=== PATIENT | female | born 1940 | race Caucasian/White ===

== ENCOUNTER 2017-03-11 04:17 | Inpatient (IN) ==
[2017-03-11] MEDS ORDERED: ONDANSETRON 4 MG/2 ML VIAL IV STA (04:39)
[2017-03-11] MEDS ORDERED: MORPHINE 2 MG/1 ML SYRINGE IV STA (04:39)
[2017-03-11] MEDS ORDERED: ASPIRIN 325 MG TABLET PO STA (04:39)
[2017-03-11] MEDS ORDERED: ALUM/MAG/SIMETH/LIDO VISC 1:1 30 ML BOTTLE PO STA (04:39)
[2017-03-11] MEDS ORDERED: NITROGLYCERIN 2% OINT 1 INCH/GM PACK TOP STA (04:43)
[2017-03-11] MEDS ORDERED: ENOXAPARIN 60 MG/0.6 ML SYRINGE SUBCUT STA (04:44)
--- NOTE | 2017-03-11 04:45 | Emergency Department Note ---
Ashia Roy Rolonda, am scribing for, and in the presence of, Wilson Long MD 04:44. Ethan Roy Charles R, MD, personally performed the services described in this documentation, ascribed by Jihan Ang in my presence, and it is both accurate and complete 445 . Arrival - Arrival Chief Complaint: Chest Pain ED Nursing Triage Note: Patient complaints of midsternal chest pain and shortness of breath that began about four and half hours prior to triage. Patient states that she thought pain would go away. Patient has a history of HTN. Denies respiratory medical history Mode of Arrival: Ambulatory Limitations: No Limitations Source: Patient, Old Records Reviewed, RN Notes Reviewed Time Seen by Provider: 03/11/17 04:27 - History of Present Illness HPI Narrative: Pt is a 76 y/o female who arrived to the ED via EMS with c/o tight/heavy chest pain with an onset of x4 hours ago. Pt has a PMHx of HTN. 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 She states that she laid down to go to bed and noticed that she was having a hard time catching her breath. Pt confirms that the chest pain radiated to her neck but denies diaphoresis and vertigo. She also stated that it feels as if something is sitting on her shoulders. Pt had no pain upon exam. She is f/u by Dr. Jerome. No other complaint/pain in ED Onset (ago): hour(s) Consistency: constant Severity: mild Severity scale (1-10): 3 Quality: other (heaviness/tightness) Date of Last Menstrual Period: menopause Allergies/Adverse Reactions: Allergies Allergy/AdvReac Type Severity Reaction Status Date / Time No Known Allergies Allergy Unverified 03/11/17 04:34 Home Medications: Home Medications Medication Instructions Recorded Confirmed Type Meloxicam 7.5 mg PO DAILY 03/11/17 03/11/17 History PARoxetine [Paxil] 40 mg PO DAILY 03/11/17 03/11/17 History risperiDONE [Risperidone] 0.5 mg PO BEDTIME 03/11/17 03/11/17 History Review of System - Review of System 12 point system: reviewed and no additional remarkable complaints except as stated - Review of System Constitutional: Absent: chills, diaphoresis, fever Eyes: Absent: discharge, redness Head/Ears/Nose/Throat: Absent: earache, epistaxis Respiratory: Present: respiratory distress (SOB). Absent: cough Cardiovascular: Present: chest pain. Absent: palpitations, dyspnea on exertion Gastrointestinal: Absent: abdominal pain Genitourinary female: Absent: dysuria Musculoskeletal: Present: neck pain. Absent: arm pain, back pain, leg pain Skin: Absent: rash Neurological: Absent: headache Psychiatric: Absent: anxiety Endocrine: Absent: cold intolerance Hematological/Lymphatic: Absent: easy bleeding Allergic/Immunologic: Absent: facial swelling Medical,Surgical,& Family Hx - Medical History Cardio: History of: Hypertension - Social History Smoking Status: Never smoker Frequency of Alcohol Use: None Type of Drug Use: None Exam Vital Signs: Vital Signs Temperature 98.9 F 03/11/17 04:17 Pulse Rate 83 03/11/17 04:40 Respiratory Rate 18 03/11/17 04:40 Blood Pressure 102/94 03/11/17 04:17 O2 Sat by Pulse Oximetry 98 03/11/17 04:17 - General General appearance: alert, in no apparent distress - Head Head exam: Present: atraumatic, normocephalic - Eye Eye exam: Present: PERRL, EOMI - ENT ENT exam: Present: mucous membranes moist. Absent: mucous membranes dry - Neck Neck exam: Present: full ROM. Absent: tenderness - Chest Chest inspection: Present: symmetric chest wall rise. Absent: tenderness - Respiratory Respiratory exam: Present: normal lung sounds bilaterally. Absent: wheezes - Cardiovascular Cardiovascular exam: Present: regular rate, normal rhythm, normal heart sounds. Absent: bradycardia - Abdominal Exam Abdominal exam: Present: soft, normal bowel sounds. Absent: tenderness - Extremities Exam Extremities exam: Present: full ROM, pedal edema (+1). Absent: tenderness - Back Exam Back exam: Present: full ROM. Absent: tenderness - Neurological Exam Neurological exam: Present: alert, oriented X3, CN II-XII intact - Psychiatric Psychiatric exam: Present: normal affect, normal mood - Skin Skin exam: Present: warm, dry, intact, normal color. Absent: rash Course - Consultations Consultation #1: Spoke to Dr. Contreras furniture maker on-call she looked the EKG we talked about reviewed it she does not think this is a STEMI no need to go to the Product Director right now this may be acute coronary syndrome she advise admit to the CCU give Lovenox aspirin nitro till blood pressure and call her if troponins are positive for any acute changes Time: 04:40 Results - Labs CBC & BMP: 03/11/17 04:38 03/11/17 04:38 Critical Care Time Critical Care Time: Yes Total Critical Care Time: 60 Disposition Clinical Impression: Chest pain, Acute coronary syndrome, History of hypertension, History of OCD ( obsessive compulsive disorder), Elevated troponin, Unstable angina pectoris Case discussed with: patient, patient's family Disposition: Still a Patient Condition: Guarded Time of Disposition: 05:53
[2017-03-11] MEDS ORDERED: ASPIRIN 325 MG TABLET ONE (05:01)
[2017-03-11] MEDS ORDERED: NITROGLYCERIN 2% OINT 1 INCH/GM PACK TOP ONE (05:01)
[2017-03-11] MEDS ORDERED: ONDANSETRON 4 MG/2 ML VIAL ONE (05:01)
[2017-03-11] MEDS ORDERED: MORPHINE 2 MG/1 ML SYRINGE ONE (05:01)
[2017-03-11] MEDS ORDERED: ENOXAPARIN 80 MG/0.8 ML SYRINGE SUBCUT ONE (05:01)
[2017-03-11] MEDS ORDERED: ALUM/MAG/SIMETH/LIDO VISC 1:1 30 ML BOTTLE PO ONE (05:02)
[2017-03-11 05:03] LABS: Basophils % 0.3 % (0.0-0.8); Eosinophils # 0.4 10*3/uL (0.0-0.87); Eosinophils % 3.2 % (0.00-10.9); Hematocrit 41.9 VOL% (35.7-47.0); Immature Granulocytes % 0.4 %; Immature Granulocytes Absolute 0.05 #; Lymphocytes # 2.1 10*3/uL (1.4-4.0); Lymphocytes % 17.5 % (21.3-54.2); Mean Corpuscular Hemoglobin 29 PG (27-34); Mean Corpuscular Volume 92.3 FL (87-102); Mean Platelet Volume 11.2 FL (9.6-12.0); Monocytes # 0.6 10*3/uL (0.11-0.8); Monocytes % 5.2 % (1.7-12.7); Neutrophils # 8.7 10*3/uL (1.4-7.4); Neutrophils % 73.4 % (38.7-73.9); Platelet Count 312 T/CUMM (130-400); Red Blood Count 4.54 MC/CUMM (3.8-5.5); Red Cell Distribution Width 14.7 % (9.3-17.3); White Blood Count 11.8 T/CUMM (4-12)
[2017-03-11 05:40] LABS: Magnesium 2.2 MG/DL (1.8-2.4)
[2017-03-11 05:46] LABS: Albumin 2.9 G/DL (3.4-5.0); Bilirubin,Total 1.2 MG/DL (0.2-1.0); Calcium 9.4 MG/DL (8.5-10.1); Osmolality,Calculated 283.3 MOS/KG (273-304); Potassium 4.2 MMOL/L (3.5-5.1); Total Protein 7.1 G/DL (6.4-8.3)
--- NOTE | 2017-03-11 06:21 | Cardiology History & Physical ---
Assessment and Plan (1) Acute coronary syndrome Status: Acute Current Visit: Yes (2) History of hypertension Status: Chronic Current Visit: Yes (3) History of OCD (obsessive compulsive disorder) Status: Chronic Current Visit: Yes History of Present Illness Chief complaint: Chest pain History of present illness: Dog Warden: None Ms. Shelton is a 76 year old female without a prior cardiac history, with risk factors significant for hypertension. She presents with chest discomfort. In general she is a very simple historian and does not provide many details even when prompted. From what I can ascertain she developed symptoms at approximately 9:00 yesterday evening. There was some chest discomfort involved , but her predominant symptom was "making a funny noise when she breathes". This was upsetting her "dog babies". It seems that she had some chest discomfort which included a pain and a pressure. This was nonradiating without clear triggers or alleviators. There was associated shortness of breath. Her symptoms wax and wane throughout the evening, and finally at approximately 4 AM she decided to come to the emergency room for further evaluation and treatment because she was more short of breath when she was recumbent. Upon arrival she was administered nitroglycerin and aspirin which dramatically improved her symptoms. At the time of my interview she is pain-free. She has no prior cardiac history. She denies experiencing the symptoms Prior to the evening. There has been no change in her exercise tolerance, she denies any dyspnea on exertion, orthopnea, lower extremity edema. She has no history of GI bleeding. She has no contraindication to dual antiplatelet therapy. She has no other acute complaints. Impression and plan: 1. Acute coronary syndrome-presents with chest discomfort alleviated with nitroglycerin, abnormal ECG and mildly elevated cardiac biomarkers. She is currently pain-free, although she does have a high risk ECG. She is already been administered Lovenox and aspirin. We will check a fasting lipid profile, administer statins and beta blockers as tolerated. I have discussed the role, risks and benefits of cardiac catheterization with the patient and she is agreeable to proceeding. Home Medications Medication Instructions Recorded Confirmed Type Meloxicam 7.5 mg PO DAILY 03/11/17 03/11/17 History PARoxetine [Paxil] 40 mg PO DAILY 03/11/17 03/11/17 History risperiDONE [Risperidone] 0.5 mg PO BEDTIME 03/11/17 03/11/17 History Allergies Allergy/AdvReac Type Severity Reaction Status Date / Time No Known Allergies Allergy Unverified 03/11/17 04:34 12 point system: reviewed and no additional remarkable complaints except as stated Medical,Surgical,& Family Hx - Medical History Cardio: History of: Hypertension Psychological: History of: Psychiatric Problems (OCD) - Social History Smoking Status: Never smoker Frequency of Alcohol Use: None Type of Drug Use: None Lives With:: Alone Functional capacity: independent ambulation Cardiology Physical Exam - Constitutional Vitals: Vital Signs Temp Pulse Resp BP Pulse Ox 98.9 F 83 18 102/94 98 03/11/17 04:17 03/11/17 04:40 03/11/17 04:40 03/11/17 04:17 03/11/17 04:17 Intake and Output 03/10/17 03/10/17 03/11/17 15:59 23:59 07:59 Other: Weight 65.771 kg Patient Weight 03/11/17 23:59 Weight 65.771 kg Exam: General appearance: normal weight, no acute distress - Head Head exam: Present: normal inspection, normocephalic, atraumatic. Absent: hematoma, laceration - Eye Eye exam: Present: EOMI. Absent: conjunctival injection, nystagmus, periorbital swelling, scleral icterus, laceration to eyelids Pupils: Present: PERRL. Absent: constricted, dilated, fixed, irregular, unequal - ENT ENT exam: Present: normal exam, normal external ear exam - Neck Neck exam: Present: normal inspection. Absent: lymphadenopathy, meningismus, tenderness, thyromegaly - Respiratory Respiratory exam: Present: clear to auscultation bilaterally. Absent: accessory muscle use, chest wall tenderness - Cardiovascular Cardiovascular exam: Present: regular rate and rhythm. Absent: carotid bruit, gallop, JVD, rubs - GI/Abdominal GI/Abdominal exam: Present: normal bowel sounds, soft. Absent: distended, firm , guarding, hernia, mass, tenderness, rebound. - Extremities Exam Extremities exam: Present: normal inspection, normal capillary refill. Absent: calf tenderness, edema - Back Exam Back exam: Present: normal inspection. Absent: muscle spasm, vertebral tenderness - Neurological Exam Neurological exam: Present: alert, oriented X3, grossly intact without resting or intention tremor - Psychiatric Psychiatric exam: Present: normal affect, normal mood - Skin Skin exam: Present: normal color, warm, dry, intact. Absent: cyanosis, diaphoretic, rash, urticaria Result/EKG - Labs CBC & BMP: 03/11/17 04:38 03/11/17 04:38 Lab Results: I have reviewed the past 24 hour labs Labs: Laboratory Results - last 24 hr 03/11/17 03/11/17 03/11/17 04:38 04:38 04:38 WBC RBC Hgb Hct MCV MCH MCHC RDW Plt Count MPV Neut % (Auto) Lymph % (Auto) [place] % (Auto) Eos % (Auto) Baso % (Auto) Neut # (Auto) Lymph # (Auto) [place] # (Auto) Eos # (Auto) Baso # (Auto) Immature Gran % Nucleated RBC % Immature Gran # Nucleated RBCs # Immature Plt Fraction INR PT Patient/Control Mix D-Dimer, Quantitative 1.1 Sodium 141 Potassium 4.2 Chloride 107 Carbon Dioxide 28 Anion Gap 10.2 BUN 20 H Creatinine 1.40 H GFR Calculation 37 BUN/Creatinine Ratio 14.00 Glucose 107 H Calculated Osmolality 283.3 Calcium 9.4 Magnesium Total Bilirubin 1.20 H AST 14 ALT 14 Alkaline Phosphatase 115 Troponin I B-Natriuretic Peptide 675 H Total Protein 7.1 Albumin 2.9 L Globulin 4.2 H Albumin/Globulin Ratio 0.6 L Lipase 03/11/17 03/11/17 03/11/17 04:38 04:38 04:38 WBC 11.8 RBC 4.54 Hgb 13.0 Hct 41.9 MCV 92.3 MCH 29 MCHC 31.0 L RDW 14.7 Plt Count 312 MPV 11.2 Neut % (Auto) 73.4 Lymph % (Auto) 17.5 L [place] % (Auto) 5.2 Eos % (Auto) 3.2 Baso % (Auto) 0.3 Neut # (Auto) 8.7 H Lymph # (Auto) 2.1 [place] # (Auto) 0.6 Eos # (Auto) 0.4 Baso # (Auto) 0.0 Immature Gran % 0.4 Nucleated RBC % 0.0 Immature Gran # 0.05 Nucleated RBCs # 0.00 Immature Plt Fraction 0.0 INR 1.0 PT Patient/Control Mix 10.0 D-Dimer, Quantitative Sodium Potassium Chloride Carbon Dioxide Anion Gap BUN Creatinine GFR Calculation BUN/Creatinine Ratio Glucose Calculated Osmolality Calcium Magnesium Total Bilirubin AST ALT Alkaline Phosphatase Troponin I 0.157 H B-Natriuretic Peptide Total Protein Albumin Globulin Albumin/Globulin Ratio Lipase 03/11/17 04:38 WBC RBC Hgb Hct MCV MCH MCHC RDW Plt Count MPV Neut % (Auto) Lymph % (Auto) [place] % (Auto) Eos % (Auto) Baso % (Auto) Neut # (Auto) Lymph # (Auto) [place] # (Auto) Eos # (Auto) Baso # (Auto) Immature Gran % Nucleated RBC % Immature Gran # Nucleated RBCs # Immature Plt Fraction INR PT Patient/Control Mix D-Dimer, Quantitative Sodium Potassium Chloride Carbon Dioxide Anion Gap BUN Creatinine GFR Calculation BUN/Creatinine Ratio Glucose Calculated Osmolality Calcium Magnesium 2.2 Total Bilirubin AST ALT Alkaline Phosphatase Troponin I B-Natriuretic Peptide Total Protein Albumin Globulin Albumin/Globulin Ratio Lipase 202.0 - EKG EKG results: interpreted by me, sinus rhythm (There is poor R-wave progression or Q waves in the anterior leads with less than [address] elevation and biphasic T waves)
--- NOTE | 2017-03-11 07:44 | XRay Report ---
XR chest 1V portable Indication: Chest pain Comparison: Chest x-ray dated May 04, 2012 Technique: Single frontal view of the chest. Findings: Mild cardiomegaly. There is a nonspecific reticular pattern throughout the bilateral lungs suspicious for interstitial pulmonary edema, interstitial pneumonia, or other interstitial lung disease. Interstitial pulmonary edema/CHF favored. Visualized osseous and surrounding soft tissue structures appear grossly unchanged. Diffuse osteopenia. IMPRESSION: As above. PROCEDURE INTERPRETED AT [facility] DEPARTMENT OF RADIOLOGY Final Report Signed by: Dr Jeremy Carvalho
[2017-03-11] MEDS ORDERED: ONDANSETRON 4 MG/2 ML VIAL IV PRN (07:55)
[2017-03-11] MEDS ORDERED: POTASSIUM CHLORIDE RIDER 10 MEQ in PREMIX 1 EACH IV PRN (07:55)
[2017-03-11] MEDS ORDERED: SODIUM CHLORIDE 0.9% 1,000 ML IV SCH (07:55)
[2017-03-11] MEDS ORDERED: MORPHINE 2 MG/1 ML SYRINGE IV PRN (07:55)
[2017-03-11] MEDS ORDERED: DIAZEPAM 5 MG TABLET PO ONE (07:55)
[2017-03-11] MEDS ORDERED: POTASSIUM CHLORIDE 20 MEQ TABLET PO PRN (07:55)
[2017-03-11] MEDS ORDERED: MAGNESIUM SULF RIDER 2 GM in PREMIX 1 EACH IV PRN ×2 (07:55)
[2017-03-11] MEDS ORDERED: diphenhydrAMINE CAP 25 MG CAPSULE PO ONE (07:55)
[2017-03-11] MEDS ORDERED: MAGNESIUM SULF RIDER 4 GM in PREMIX 1 EACH IV PRN (07:55)
[2017-03-11] MEDS ORDERED: MELOXICAM 7.5 MG TABLET PO SCH (09:00)
--- NOTE | 2017-03-11 09:42 | EKG Report ---
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
[2017-03-11] MEDS: PARoxetine 20 MG TABLET PO SCH (10:51)
[2017-03-11] MEDS: PANTOPRAZOLE 40 MG TABLET PO SCH (10:52)
[2017-03-11] MEDS ORDERED: NITROGLYCERIN 2% OINT 1 INCH/GM PACK TOP SCH (12:00)
[2017-03-11] MEDS ORDERED: HEPARIN/NACL 0.9% 2 UNITS/ML 1,000 ML IV ONE (12:47)
[2017-03-11] MEDS ORDERED: LIDOCAINE 1%/EPI INJ 20 ML VIAL ONE (12:47)
[2017-03-11] MEDS ORDERED: MIDAZOLAM 2 MG/2 ML VIAL ONE (12:59)
[2017-03-11] MEDS ORDERED: fentaNYL 100 MCG/2 ML VIAL ONE (12:59)
--- NOTE | 2017-03-11 13:29 | History and Physical Update ---
Sedation H&P Update - History and Physical H&P was reviewed, the patient examined and there: are no changes in the patients condition since last H&P was completed. - Sedation Plan for Sedation: moderate Patient Consent: Procedure disscussed with patient and patinet has consented., Risks and benefits were discussed with patient,including infection,, bleeding, injury to surrounding structures, seizure, temporary nerve, Patient understands and accepts potential risks/benefits and agrees to, proceed. ASA Class: III Airway Assessment: Class III: Soft palate, base of uvula visible
--- NOTE | 2017-03-11 13:32 | EKG Report ---
Stationary ECG Study [facility] Test Date: 03/11/2017 4:35:08 AM Pat Name: AC HAIEL Department: Room: 125 Gender: F Staffing Coordinator: : 1940 Requested by: Wilson Patel Order Number: [id number] Reading MD: STEVE PARRISH Intervals [place] Rate: 81 P: 51 DE: 168 QRS: -74 QRSD: 94 T: 100 QT: 388 QTc: 425 Interpretive Statements SINUS RHYTHM POSSIBLE LEFT ATRIAL ENLARGEMENT POSSIBLE LEFT VENTRICULAR HYPERTROPHY INFERIOR MYOCARDIAL INFARCTION, OF INDETERMINATE AGE ANTEROSEPTAL MYOCARDIAL INFARCTION, PROBABLY RECENT ACUTE [place] Electronically Signed On 03-12-17 05:26:38 CDT by STEVE PARRISH [email or web address]
[2017-03-11] MEDS ORDERED: ENOXAPARIN 60 MG/0.6 ML SYRINGE ONE (13:39)
--- NOTE | 2017-03-11 13:40 | EKG Report ---
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
[2017-03-11] MEDS ORDERED: EPTIFIBATIDE 75 MG/100 ML BOTTLE IV ONE (13:42)
[2017-03-11] MEDS ORDERED: EPTIFIBATIDE 20,000 MCG/10 ML VIAL ONE (13:42)
[2017-03-11] MEDS ORDERED: EPTIFIBATIDE 75 MG/100 ML BOTTLE IV SCH (13:50)
[2017-03-11] MEDS ORDERED: TICAGRELOR 90 MG TABLET ONE (14:17)
--- NOTE | 2017-03-11 14:59 | Cardiac Catheterization ---
Date of Procedure:: 03/11/17 Pre-op Diagnosis: Abnormal EKG atypical chest pain for evaluation Post-op diagnosis: same Procedure: Procedures performed: Left heart catheterization Coronary arteriography Percutaneous intervention to the proximal LAD with a 3.0 x 23 mm Zions drug- eluting stent with a good angiographic result Percutaneous intervention to the diagonal branch of the LAD with a 2.0 x 12 mm balloon with a good angiographic result [Right] femoral sheath angiography Mynx closure femoral arteriotomy site After obtaining informed consent the patient was brought to the catheterization lab where the [right] groin was prepped and draped in the usual sterile manner. After intravenous sedation and local anesthesia a needle stick was made to the right femoral artery and a [6 [place] sheath] was positioned without difficulty. A left heart catheterization was undertaken using first a José left diagnostic catheter. The catheter was advanced under fluoroscopy over a guidewire and positioned with its tip in the ostium of the left main coronary artery. Multiple angiograms were obtained of the left coronary artery in multiple views. After adequate angiogram to left coronary obtain this catheter was withdrawn and an AMR right coronary catheter was advanced over a guidewire under fluoroscopic control where angiography of the right coronary artery was undertaken in multiple views. After adequate angiograms of the right coronary artery were obtained this catheter was withdrawn. We elected at this point to proceed with percutaneous intervention of the LAD and the diagonal. 2 BMW 014 wires were advanced one across the LAD stenosis the other across the diagonal. A 2.0 x 20 mm apex balloon was advanced to the LAD and inflated to 12 amadou. At this point the diagonal closed. A 3.0 x 23 mm Zions Alpine stent was advanced across the LAD stenosis and deployed to a maximum 10 amadou. The diagonal wire was then pulled back and then redirected into the diagonal without difficulty. This was done after second inflation was undertaken to the LAD stent taken to 14 amadou for 20 seconds. At this point there was good apposition of the LAD stent to the vessel wall. A 2.0 x 15 mm Jersey balloon was advanced across the diagonal stenosis and inflated a single inflation to 10 amadou. There was good resolution of the stenosis with a roughly 40-50% residual stenosis. There was BENSON grade III flow down both branches and at this point we elected to stop the procedure. Both guidewires were pulled and repeat angiogram confirmed widely patent LAD stent with no residual stenosis of the diagonal of roughly 50%. The distal diagonal was very small and appeared to be occluded in its midportion. This appear to be an adequate angiographic result and at this point the balloons and wires were pulled from the guide. The guide was then removed from the sheath. A pigtail ventriculographic catheter was advanced over guidewire under fluoroscopic control deviation aorta where it was passed across the aortic valve and intraventricular hemodynamic some measured. Pullback was obtained from the ventricle to the aorta under hemodynamic monitoring and then removed. Patient underwent right femoral sheath angiography which demonstrated anatomy appropriate for Angio-Seal closure. This was accomplished without difficulty. Good hemostasis was obtained. Patient was transferred back to the CCU having suffered no significant immediate complications. Hemodynamics: Please see the accompanying data sheet Coronary arteriography: Left coronary artery: The left main coronary artery is well-developed and free of significant obstructing lesions. The circumflex coronary is a large codominant vessel that possesses no significant lesions through its course. The branches of the circumflex likewise are free of significant obstructing lesions. The left anterior descending coronary artery is a large vessel that extends around the apex of the ventricle. The LAD is subtotally occluded in its proximal portion at the takeoff of the large diagonal. This is 99% occluded. The diagonal is occluded in a similar manner with very sluggish flow down the diagonal branch. Right coronary artery: The right coronary artery is a large codominant vessel it possesses no significant lesions to his course. The branches of the right coronary likewise are free of significant obstructing lesions. Right femoral sheath angiography: After injection of contrast in the right femoral arterial sheath it is noted be of normal caliber and enters above the bifurcation. The distal iliac, common femoral and bifurcation appear to be free of significant obstructing lesions based on this limited angiographic study. There appears to be a linear dissection with out significant impediment to flow which we will observe at this point. Conclusions: 1: Successful PCI of the subtotal occluded LAD/diagonal with a widely patent LAD with BENSON grade III flow down the vessel and a residual 50% stenosis of the ostium of the diagonal which appears to be totally occluded in its midportion. 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 This will be for continued observation. Discussion and recommendations: Patient had an atypical presentation with minimally elevated troponins and abnormal EKG with very minimal symptoms that were consistent with ischemia. She was brought for catheterization found to have a subtotal LAD/diagonal which is been successfully opened and our plan will be to treat the patient aggressively with antithrombotic and antiplatelet agents and appropriate antianginal medications. We will evaluate her LV function with echocardiography as her renal function was not normal and a fair amount of contrast was given for this procedure. Our findings have been reviewed with the patient Surgeon / Physician: Solo Dorantes Estimated blood loss: minimal Specimens: none sent Condition: stable - Medications / Follow-up
--- NOTE | 2017-03-11 15:28 | EKG Report ---
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
[2017-03-11] MEDS: SODIUM CHLORIDE 0.45% 1,000 ML IV SCH (15:52)
[2017-03-11] MEDS ORDERED: ENOXAPARIN 80 MG/0.8 ML SYRINGE SUBCUT SCH (17:00)
--- NOTE | 2017-03-11 20:17 | ECHO Report ---
Sangita Shelton Exam Date: 03/11/2017 08:28 Referring Physician: Technologist: Tuyet Nunn Age: 76 Ht (in): 66 Wt (lb): 145 Gender: F Exam Location: [facility] Echo Indications: unstable angina pectoris, elevatted troponin, Hx. HTN, arrhythmia, chest pain, acute coronary syndrome BP: 112 / 30 HR: 67 Rhythm: Sinus Technical Quality: Fair IMPRESSIONS Moderately to severely reduced LV systolic function with regional wall motion as described below, ejection fraction 35%. Grade 1/4 diastolic dysfunction. Mild left atrial enlargement. Mild mitral, tricuspid regurgitation. Trace aortic and pulmonic regurgitation. Aortic sclerosis without stenosis. Trivial pericardial effusion. MEASUREMENTS (Male / Female) Normal Values 2D ECHO LV Diastolic Diameter PLAX 5.3 cm 4.2 - 5.9 / 3.9 - 5.3 cm LV Systolic Diameter PLAX 4.3 cm LV Fractional Shortening PLAX 19.3 % IVS Diastolic Thickness 1.1 cm 0.6 - 1.0 / 0.6 - 0.9 cm LVPW Diastolic Thickness 1.0 cm 0.6 - 1.0 / 0.6 - 0.9 cm Aortic Root Diameter 2.5 cm LA Systolic Diameter LX 4.7 cm 3.0 - 4.0 / 2.7 - 3.8 cm DOPPLER TR Peak Velocity 326.0 cm/s TR Peak Gradient 42.5 mmHg FINDINGS Left Ventricle Mildly increased left ventricular cavity size. Mild concentric left ventricular hypertrophy with moderate diastolic dysfunction. Left ventricular ejection fraction is estimated at 35%. The apex is severely hypokinetic if not akinetic. The anterior septum also appears severely hypokinetic if not akinetic. There is severe hypokinesis of the mid to distal inferior wall. The mid to distal anterior wall is moderately hypokinetic. Right Ventricle Normal right ventricular size. Right Atrium Normal right atrial size. Left Atrium The left atrium is mildly enlarged. Mitral Valve Mildly thickened mitral valve with mild mitral regurgitation. Aortic Valve Mild aortic valve sclerosis without stenosis. Trace aortic valve regurgitation. Tricuspid Valve Morphologically normal tricuspid valve. Trace - mild tricuspid valve regurgitation. Tricuspid regurgitation velocities suggest a PAP of 42.5 mmHg + RAP. Pulmonic Valve Morphologically normal pulmonic valve. Trace pulmonary valve regurgitation. Pericardium Trivial pericardial effusion. Aorta Normal size aortic root and proximal ascending aorta. Tiffany Contreras MD (Electronically Signed) Final Date: 11 March 2017 20:16
[2017-03-11] MEDS ORDERED: risperiDONE 0.5 MG TABLET PO SCH (21:00)
[2017-03-11] MEDS: ATORVASTATIN 80 MG TABLET PO SCH (21:59)
[2017-03-11] MEDS: CARVEDILOL 6.25 MG TABLET PO SCH (21:59)
[2017-03-12 02:09] LABS: Apearance,Urine CLEAR (Clear); Bilirubin,Urine Negative (Negative); Blood, Urine Negative (Negative); Glucose,Urine (UA) Negative (Negative); Ketones,Urine Negative (Negative); Nitrite,Urine Negative (Negative); Protein,Urine Negative; RBC,Urine <1 /HPF (0-4); Squamous Epithelial Cell,Urine Occasional /HPF (0-10); Urine Color Straw (Yellow); Urine Specific Gravity 1.039 (1.001-1.035); Urine Urobilinogen < 2.0 EU/DL (0.2-1.0); WBC,Urine 1 /HPF (0-6)
[2017-03-12 04:16] LABS: Basophils % 0.2 % (0.0-0.8); Eosinophils # 0.4 10*3/uL (0.0-0.87); Eosinophils % 4.3 % (0.00-10.9); Hematocrit 34.6 VOL% (35.7-47.0); Hemoglobin 10.9 GM/DL (12.0-16.0); Immature Granulocytes % 0.4 %; Immature Granulocytes Absolute 0.03 #; Lymphocytes # 1.8 10*3/uL (1.4-4.0); Lymphocytes % 22.1 % (21.3-54.2); Mean Corpuscular HGB Conc 31.5 GM/DL (32-36); Mean Corpuscular Hemoglobin 29 PG (27-34); Mean Corpuscular Volume 91.5 FL (87-102); Mean Platelet Volume 11.5 FL (9.6-12.0); Monocytes # 0.5 10*3/uL (0.11-0.8); Monocytes % 6.4 % (1.7-12.7); Neutrophils # 5.4 10*3/uL (1.4-7.4); Neutrophils % 66.6 % (38.7-73.9); Platelet Count 263 T/CUMM (130-400); Red Blood Count 3.78 MC/CUMM (3.8-5.5); Red Cell Distribution Width 14.9 % (9.3-17.3); White Blood Count 8.1 T/CUMM (4-12)
[2017-03-12 04:46] LABS: Albumin 2.5 G/DL (3.4-5.0); Bilirubin,Total 1.5 MG/DL (0.2-1.0); Calcium 9.1 MG/DL (8.5-10.1); Magnesium 2.3 MG/DL (1.8-2.4); Potassium 4.7 MMOL/L (3.5-5.1); Risk Ratio 5.92; Total Protein 5.6 G/DL (6.4-8.3)
[2017-03-12 04:59] LABS: Troponin I Only 0.713 NG/ML (0.00-0.045)
[2017-03-12] MEDS: SODIUM CHLORIDE 0.45% 1,000 ML IV SCH (05:08)
--- NOTE | 2017-03-12 07:23 | EKG Report ---
Stationary ECG Study [facility] Test Date: 03/12/2017 7:21:44 AM Pat Name: AC HAILE Department: Room: 125 Gender: F Bilingual Interpreter: CAROLA : 1940 Requested by: Solo Dorantes Order Number: [id number] Reading MD: DAJA CORADO Intervals [place] Rate: 70 P: 34 SD: 155 QRS: -50 QRSD: 97 T: 147 QT: 425 QTc: 446 Interpretive Statements SINUS RHYTHM LEFT ANTERIOR FASCICULAR BLOCK Anterior T-wave in versions, suggestive of ischemia and/or ANTERIOR MYOCARDIAL INFARCTION, PROBABLY RECENT Electronically Signed On 03-12-17 13:17:40 CDT by DAJA CORADO [email or web address]
--- NOTE | 2017-03-12 07:43 | XRay Report ---
XR chest 1V portable Indication: SOB Comparison: Chest x-ray dated March 11, 2017 Technique: Single frontal view of the chest. Findings: The cardiomediastinal silhouette is stable in configuration. Continued mild/moderate cardiomegaly. Interval improved interstitial prominence of the lungs suggesting improved interstitial pulmonary edema. Chronic change of the lungs without focal consolidation, pleural effusion, or pneumothorax. Visualized osseous and surrounding soft tissue structures appear grossly unchanged. IMPRESSION: As above. PROCEDURE INTERPRETED AT [facility] DEPARTMENT OF RADIOLOGY Final Report Signed by: Dr Jeremy Carvalho
--- NOTE | 2017-03-12 08:04 | Cardiology Progress Note ---
<Rachael Girard - Last Filed: 03/12/17 08:23> Assessment and Plan (1) Acute coronary syndrome Status: Acute Assessment and plan: See plan of care listed below. Current Visit: Yes (2) Dyslipidemia Status: Acute Assessment and plan: See plan of care listed below. Current Visit: Yes (3) Ischemic cardiomyopathy Status: Acute Assessment and plan: See plan of care listed below. Current Visit: Yes (4) Congestive heart failure Status: Acute Assessment and plan: See plan of care listed below. Current Visit: Yes Qualifiers: Congestive heart failure type: combined Congestive heart failure chronicity : acute Qualified Code(s): I50.41 - Acute combined systolic (congestive) and diastolic (congestive) heart failure (5) Chest pain Status: Resolved Assessment and plan: See plan of care listed below. Current Visit: Yes (6) History of OCD (obsessive compulsive disorder) Status: Chronic Assessment and plan: See plan of care listed below. Current Visit: Yes (7) History of hypertension Status: Chronic Assessment and plan: See plan of care listed below. Current Visit: Yes (8) UTI (urinary tract infection) Status: Acute Assessment and plan: See plan of care listed below. Current Visit: Yes (9) Pericardial effusion Status: Acute Assessment and plan: See plan of care listed below. Current Visit: Yes Cardiology - PN: Subj Interval history: Quality Improvement Manager: Dr. Contreras, new SUMMARY Ms. reyes, 76-year-old female with past medical history of hypertension presented to [facility] with complaints of chest discomfort. Her EKG was abnormal and she had mildly elevated cardiac biomarkers. Subsequently, she underwent heart catheterization with the following impressions noted: Conclusions: 1: Successful PCI of the subtotal occluded LAD/diagonal with a widely patent LAD with BENSON grade III flow down the vessel and a residual 50% stenosis of the ostium of the diagonal which appears to be totally occluded in its midportion. 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 This will be for continued observation. Discussion and recommendations: Patient had an atypical presentation with minimally elevated troponins and abnormal EKG with very minimal symptoms that were consistent with ischemia. She was brought for catheterization found to have a subtotal LAD/diagonal which is been successfully opened and our plan will be to treat the patient aggressively with antithrombotic and antiplatelet agents and appropriate antianginal medications. We will evaluate her LV function with echocardiography as her renal function was not normal and a fair amount of contrast was given for this procedure. Our findings have been reviewed with the patient 2016 UPDATE Patient was seen and examined in the CCU. Her night was uneventful. She is doing well this morning without complaints. Denies chest pain, heaviness and tightness. Echocardiogram yesterday revealed reduced LV systolic function, ejection fraction 35%. Grade 1 diastolic dysfunction. Mild MR and TR. Trivial pericardial effusion. Right groin is soft without bleeding, hematoma and bruit this morning distal pulses 2+. Per nursing staff, she did have a steady ooze overnight. This has been resolved now for a couple of hours. Nurse has been instructed to get patient up out of bed this morning and monitor her right groin. If she does well she will be transferred to the telemetry unit. Labs have been reviewed. Creatinine stable at 1.0. BNP elevated at 889. Chest x-ray reveals mild cardiomegaly with interval improvement of her interstitial pulmonary edema. I will add Lasix today. Lipid panel has been reviewed. LDL 167. Intensity statin has been initiated. Lipid panel will need to be rechecked in about 1 month. Overall, blood pressure is well controlled. I will increase her MICHELLE inhibitor to 5 mg daily. Will continue to monitor blood pressure and continue to adjust medications as needed. Will transfer patient up to telemetry later today when bed available. I will further discuss with Dr. Contreras and await her additional recommendations. ASSESSMENT/PLAN 1. ACUTE CORONARY SYNDROME - Patient is now status post PCI of the subtotal occluded LAD/diagonal. Patient is doing well postoperatively. Plan to transfer to telemetry later today. Continue to monitor right groin for recurrent bleeding. H&H is stable. Continue dual antiplatelet therapy, beta blockade, lipid-lowering agent and MICHELLE inhibitor. 2. ISCHEMIC CARDIOMYOPATHY - Ejection fraction of 35% per recent echo. Grade 1 diastolic dysfunction. Patient is now status post PCI. Medical therapy has been initiated. Continue beta-blockade and MICHELLE inhibitor. BNP is also elevated and chest x-ray is consistent with mildly decompensated heart failure, secondary to both diastolic and systolic dysfunction. IV Lasix has been initiated. We will continue with daily weights and strict I's and O's. Patient will need repeat echocardiogram in 90 days to reevaluate her ejection fraction. Can consider adding Aldactone if needed. I will further discuss with Dr. Contreras and await additional recommendations. 3. HYPERTENSION - Overall well controlled. Continue current plan of care. 4 DYSLIPIDEMIA - High intensity statin initiated. LDL 167. Patient will need repeat lipid panel in 1 month to 6 weeks. 5. UTI - Cipro initiated. Culture pending. 6. TRIVIAL PERICARDIAL EFFUSION - Trivial pericardial effusion noted per echocardiogram. No signs of tamponade. Hemodynamically stable. Continue to monitor. Exam (Progress Note) - Constitutional Vitals: Period Temp Pulse Resp BP Sys/Seth Pulse Ox Last 24 Hr 97.1 F-97.6 F 61-85 13-32 98-160/52-92 3-100 Exam: General: Appears well with no apparent distress. Pleasant and cooperative. Appears comfortable. HEENT: PERRL, normocephalic, atraumatic. Mucous membranes moist. No jaundice noted. Conjunctiva moist and clear, sclerae anicteric Neck: No JVD/HJR, no thyromegaly or lymphadenopathy noted. No carotid bruit appreciated Cardiac: Regular rate and rhythm. Soft systolic murmur Lungs: Bibasilar rales auscultated bilaterally. Oxygen via nasal cannula. Abdomen: Soft, bowel sounds normoactive. Nontender and nondistended. No abdominal bruit or thrill noted. No masses noted. Extremities: No clubbing, cyanosis noted. Trace edema to bilateral lower extremities. Upper extremity pulses 2+. Lower extremity pulses 2+. Capillary refill less than 3 seconds. Right groin soft without bleeding, hematoma and bruit. Skin: No unusual lesions or rashes. No skin breakdown appreciated. Neuro: Awake, alert and oriented 3. Moves all extremities well without hemiparesis or paralysis. No essential tremor is appreciated. Result/EKG - Labs CBC & BMP: 03/12/17 03:39 03/12/17 03:39 Lab Results: I have reviewed the past 24 hour labs Labs: Laboratory Results - last 24 hr 03/11/17 03/11/17 03/11/17 07:53 10:40 15:18 WBC RBC Hgb Hct MCV MCH MCHC RDW Plt Count MPV Neut % (Auto) Lymph % (Auto) [place] % (Auto) Eos % (Auto) Baso % (Auto) Neut # (Auto) Lymph # (Auto) [place] # (Auto) Eos # (Auto) Baso # (Auto) Immature Gran % Nucleated RBC % Immature Gran # Nucleated RBCs # Immature Plt Fraction Sodium Potassium Chloride Carbon Dioxide Anion Gap BUN Creatinine GFR Calculation BUN/Creatinine Ratio Glucose Calculated Osmolality Calcium Magnesium Total Bilirubin AST ALT Alkaline Phosphatase Total Creatine Kinase CK-MB (CK-2) Troponin I 0.281 H D 0.259 H 0.238 H B-Natriuretic Peptide Total Protein Albumin Globulin Albumin/Globulin Ratio Triglycerides Cholesterol LDL Cholesterol VLDL Cholesterol HDL Cholesterol Heart Disease Risk Ratio Urine Color Urine Appearance Urine pH Ur Specific [place] Urine Protein Urine Glucose (UA) Urine Ketones Urine Blood Urine Nitrate Urine Bilirubin Urine Urobilinogen Urine Leukocytes Urine RBC Urine WBC Ur Squamous Epith Cells Ur Culture Indicated? 03/12/17 03/12/17 03/12/17 00:00 03:39 03:39 WBC 8.1 D RBC 3.78 L Hgb 10.9 L D Hct 34.6 L MCV 91.5 MCH 29 MCHC 31.5 L RDW 14.9 Plt Count 263 MPV 11.5 Neut % (Auto) 66.6 Lymph % (Auto) 22.1 [place] % (Auto) 6.4 Eos % (Auto) 4.3 Baso % (Auto) 0.2 Neut # (Auto) 5.4 Lymph # (Auto) 1.8 [place] # (Auto) 0.5 Eos # (Auto) 0.4 Baso # (Auto) 0.0 Immature Gran % 0.4 Nucleated RBC % 0.0 Immature Gran # 0.03 Nucleated RBCs # 0.00 Immature Plt Fraction 0.0 Sodium 143 Potassium 4.7 Chloride 109 H Carbon Dioxide 31 Anion Gap 7.7 BUN 15 Creatinine 1.00 GFR Calculation 54 BUN/Creatinine Ratio 15.00 Glucose 99 Calculated Osmolality 285.0 Calcium 9.1 Magnesium 2.3 Total Bilirubin 1.50 H AST 14 ALT 11 L Alkaline Phosphatase 102 Total Creatine Kinase CK-MB (CK-2) Troponin I B-Natriuretic Peptide Total Protein 5.6 L Albumin 2.5 L Globulin 3.1 Albumin/Globulin Ratio 0.8 L Triglycerides 165 H Cholesterol 231 H LDL Cholesterol 167.0 VLDL Cholesterol 33.0 HDL Cholesterol 39 L Heart Disease Risk Ratio 5.92 Urine Color Straw Urine Appearance Clear Urine pH 7.0 Ur Specific [place] 1.039 H Urine Protein Negative Urine Glucose (UA) Negative Urine Ketones Negative Urine Blood Negative Urine Nitrate Negative Urine Bilirubin Negative Urine Urobilinogen < 2.0 H Urine Leukocytes Trace Urine RBC <1 Urine WBC 1 Ur Squamous Epith Cells Occasional Ur Culture Indicated? Results to follow 03/12/17 03/12/17 03:39 03:39 WBC RBC Hgb Hct MCV MCH MCHC RDW Plt Count MPV Neut % (Auto) Lymph % (Auto) [place] % (Auto) Eos % (Auto) Baso % (Auto) Neut # (Auto) Lymph # (Auto) [place] # (Auto) Eos # (Auto) Baso # (Auto) Immature Gran % Nucleated RBC % Immature Gran # Nucleated RBCs # Immature Plt Fraction Sodium Potassium Chloride Carbon Dioxide Anion Gap BUN Creatinine GFR Calculation BUN/Creatinine Ratio Glucose Calculated Osmolality Calcium Magnesium Total Bilirubin AST ALT Alkaline Phosphatase Total Creatine Kinase 40 CK-MB (CK-2) 2.5 Troponin I 0.713 H D B-Natriuretic Peptide 889 H Total Protein Albumin Globulin Albumin/Globulin Ratio Triglycerides Cholesterol LDL Cholesterol VLDL Cholesterol HDL Cholesterol Heart Disease Risk Ratio Urine Color Urine Appearance Urine pH Ur Specific [place] Urine Protein Urine Glucose (UA) Urine Ketones Urine Blood Urine Nitrate Urine Bilirubin Urine Urobilinogen Urine Leukocytes Urine RBC Urine WBC Ur Squamous Epith Cells Ur Culture Indicated? Specialty Discharge - Follow Up or Referrals Follow up with: Tiffany Contreras MD [Physician] - 1 Week (CBC, BMP, EKG) <Tiffany Contreras - Last Filed: 03/12/17 16:21> Assessment and Plan (1) Acute coronary syndrome Status: Acute Current Visit: Yes (2) History of hypertension Status: Chronic Current Visit: Yes (3) History of OCD (obsessive compulsive disorder) Status: Chronic Current Visit: Yes Cardiology - PN: Subj Interval history: I have personally interviewed and examined the patient, reviewed the chart and discussed medical decision-making with practitioner Shaji. I have read this note and agree with the documentation herein. The patient did have some mild oozing from her groin although there is currently no hematoma or bleeding. We will keep an additional day for observation and hopefully be able to discharge her home tomorrow. We will transfer to the floor. Exam (Progress Note) - Constitutional Vitals: Period Temp Pulse Resp BP Sys/Seth Pulse Ox Last 24 Hr 97.1 F-98.8 F 63-85 13-29 89-160/49-96 94-100 Result/EKG - Labs CBC & BMP: 03/12/17 03:39 03/12/17 03:39 Labs: Laboratory Results - last 24 hr 03/11/17 03/12/17 03/12/17 15:18 00:00 03:39 WBC 8.1 D RBC 3.78 L Hgb 10.9 L D Hct 34.6 L MCV 91.5 MCH 29 MCHC 31.5 L RDW 14.9 Plt Count 263 MPV 11.5 Neut % (Auto) 66.6 Lymph % (Auto) 22.1 [place] % (Auto) 6.4 Eos % (Auto) 4.3 Baso % (Auto) 0.2 Neut # (Auto) 5.4 Lymph # (Auto) 1.8 [place] # (Auto) 0.5 Eos # (Auto) 0.4 Baso # (Auto) 0.0 Immature Gran % 0.4 Nucleated RBC % 0.0 Immature Gran # 0.03 Nucleated RBCs # 0.00 Immature Plt Fraction 0.0 Sodium Potassium Chloride Carbon Dioxide Anion Gap BUN Creatinine GFR Calculation BUN/Creatinine Ratio Glucose Calculated Osmolality Calcium Magnesium Total Bilirubin AST ALT Alkaline Phosphatase Total Creatine Kinase CK-MB (CK-2) Troponin I 0.238 H B-Natriuretic Peptide Total Protein Albumin Globulin Albumin/Globulin Ratio Triglycerides Cholesterol LDL Cholesterol VLDL Cholesterol HDL Cholesterol Heart Disease Risk Ratio Urine Color Straw Urine Appearance Clear Urine pH 7.0 Ur Specific [place] 1.039 H Urine Protein Negative Urine Glucose (UA) Negative Urine Ketones Negative Urine Blood Negative Urine Nitrate Negative Urine Bilirubin Negative Urine Urobilinogen < 2.0 H Urine Leukocytes Trace Urine RBC <1 Urine WBC 1 Ur Squamous Epith Cells Occasional Ur Culture Indicated? Results to follow 03/12/17 03/12/17 03/12/17 03:39 03:39 03:39 WBC RBC Hgb Hct MCV MCH MCHC RDW Plt Count MPV Neut % (Auto) Lymph % (Auto) [place] % (Auto) Eos % (Auto) Baso % (Auto) Neut # (Auto) Lymph # (Auto) [place] # (Auto) Eos # (Auto) Baso # (Auto) Immature Gran % Nucleated RBC % Immature Gran # Nucleated RBCs # Immature Plt Fraction Sodium 143 Potassium 4.7 Chloride 109 H Carbon Dioxide 31 Anion Gap 7.7 BUN 15 Creatinine 1.00 GFR Calculation 54 BUN/Creatinine Ratio 15.00 Glucose 99 Calculated Osmolality 285.0 Calcium 9.1 Magnesium 2.3 Total Bilirubin 1.50 H AST 14 ALT 11 L Alkaline Phosphatase 102 Total Creatine Kinase 40 CK-MB (CK-2) 2.5 Troponin I 0.713 H D B-Natriuretic Peptide 889 H Total Protein 5.6 L Albumin 2.5 L Globulin 3.1 Albumin/Globulin Ratio 0.8 L Triglycerides 165 H Cholesterol 231 H LDL Cholesterol 167.0 VLDL Cholesterol 33.0 HDL Cholesterol 39 L Heart Disease Risk Ratio 5.92 Urine Color Urine Appearance Urine pH Ur Specific [place] Urine Protein Urine Glucose (UA) Urine Ketones Urine Blood Urine Nitrate Urine Bilirubin Urine Urobilinogen Urine Leukocytes Urine RBC Urine WBC Ur Squamous Epith Cells Ur Culture Indicated?
[2017-03-12] MEDS ORDERED: ASPIRIN EC 325 MG TABLET PO SCH (09:00)
[2017-03-12] MEDS ORDERED: LISINOPRIL 2.5 MG TABLET PO SCH (09:00)
[2017-03-12] MEDS: ASPIRIN EC 81 MG TABLET PO SCH (10:44)
[2017-03-12] MEDS: LISINOPRIL 2.5 MG TABLET PO SCH (10:44)
[2017-03-12] MEDS: PARoxetine 20 MG TABLET PO SCH (10:44)
[2017-03-12] MEDS: CIPROFLOXACIN 250 MG TABLET PO SCH ×2 (10:45→20:23)
[2017-03-12] MEDS: TICAGRELOR 90 MG TABLET PO SCH ×2 (10:45→20:23)
[2017-03-12] MEDS: CARVEDILOL 6.25 MG TABLET PO SCH ×2 (10:45→20:23)
[2017-03-12] MEDS: PANTOPRAZOLE 40 MG TABLET PO SCH (10:45)
[2017-03-12] MEDS: FUROSEMIDE 40 MG/4 ML VIAL IV SCH (10:45)
[2017-03-12] MEDS ORDERED: SODIUM CHLORIDE 0.45% 500 ML IV ONE (13:18)
[2017-03-12] MEDS: ATORVASTATIN 80 MG TABLET PO SCH (20:23)
[2017-03-13 04:48] LABS: Basophils % 0.3 % (0.0-0.8); Eosinophils # 0.4 10*3/uL (0.0-0.87); Eosinophils % 5.6 % (0.00-10.9); Hematocrit 33.1 VOL% (35.7-47.0); Hemoglobin 10.6 GM/DL (12.0-16.0); Immature Granulocytes % 0.4 %; Immature Granulocytes Absolute 0.03 #; Lymphocytes # 1.9 10*3/uL (1.4-4.0); Lymphocytes % 24.1 % (21.3-54.2); Mean Corpuscular Hemoglobin 29 PG (27-34); Mean Corpuscular Volume 89.9 FL (87-102); Mean Platelet Volume 11.8 FL (9.6-12.0); Monocytes # 0.5 10*3/uL (0.11-0.8); Monocytes % 6.7 % (1.7-12.7); Neutrophils % 62.9 % (38.7-73.9); Platelet Count 265 T/CUMM (130-400); Red Blood Count 3.68 MC/CUMM (3.8-5.5); Red Cell Distribution Width 14.8 % (9.3-17.3); White Blood Count 7.9 T/CUMM (4-12)
[2017-03-13 05:33] LABS: Troponin I Only 0.391 NG/ML (0.00-0.045)
[2017-03-13 05:42] LABS: Calcium 9.4 MG/DL (8.5-10.1); Magnesium 2.2 MG/DL (1.8-2.4); Potassium 4.1 MMOL/L (3.5-5.1)
[2017-03-13] MEDS: LISINOPRIL 2.5 MG TABLET PO SCH (09:05)
[2017-03-13] MEDS: TICAGRELOR 90 MG TABLET PO SCH (09:05)
[2017-03-13] MEDS: CARVEDILOL 6.25 MG TABLET PO SCH (09:05)
[2017-03-13] MEDS: CIPROFLOXACIN 250 MG TABLET PO SCH (09:05)
[2017-03-13] MEDS: PARoxetine 20 MG TABLET PO SCH (09:05)
[2017-03-13] MEDS: PANTOPRAZOLE 40 MG TABLET PO SCH (09:05)
[2017-03-13] MEDS: ASPIRIN EC 81 MG TABLET PO SCH (09:05)
[2017-03-13] MEDS: FUROSEMIDE 40 MG/4 ML VIAL IV SCH (09:07)
--- NOTE | 2017-03-13 10:04 | Discharge Summary ---
<Rachael Girard - Last Filed: 03/13/17 10:02> Hospital Course - Hospital Course Hospital Course: HIMS MANAGER: YANNI RED Ms. reyes, 76-year-old female with past medical history of hypertension presented to [facility] with complaints of chest discomfort. Her EKG was abnormal and she had mildly elevated cardiac biomarkers. Subsequently, she underwent heart catheterization with the following impressions noted: IMPRESSIONS: 1: Successful PCI of the subtotal occluded LAD/diagonal with a widely patent LAD with BENSON grade III flow down the vessel and a residual 50% stenosis of the ostium of the diagonal which appears to be totally occluded in its midportion. 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 This will be for continued observation. DISCUSSION AND RECOMMENDATIONS: Patient had an atypical presentation with minimally elevated troponins and abnormal EKG with very minimal symptoms that were consistent with ischemia. She was brought for catheterization found to have a subtotal LAD/diagonal which is been successfully opened and our plan will be to treat the patient aggressively with antithrombotic and antiplatelet agents and appropriate antianginal medications. Post catheterization patient was transported back to the CCU in stable condition. She has done well post catheterization with minimal complications. She did have a oozing from her right groin. Manual pressure as well as pressure dressing was applied. Wheezing resolved. Patient was observed for 1 more night on the telemetry unit. She is without complaints of chest pain, heaviness and tightness. Right groin has remained stable for 24 hours without bleeding, hematoma and bruit. Distal pulses are 2+. Patient has ambulated without difficulty. Right groin has remained stable post ambulation. Groin precautions reviewed with the patient and her daughter who is at bedside. I spent greater than 5 minutes discussing the importance of absolute compliance with dual antiplatelet therapy. Her and daughter both verbalized understanding. She will be discharged home on both Brilinta and aspirin. Echocardiogram revealed reduced LV systolic function, ejection fraction 35%. Grade 1 diastolic dysfunction. Mild MR and TR. Trivial pericardial effusion. Medical therapy for systolic dysfunction was initiated. Patient will be discharged home on beta-ana and MICHELLE inhibitor. She will need repeat echocardiogram in 90 days to reevaluate her LV function. Heart failure was mildly decompensated. She was diuresed with IV Lasix. She is diuresed well and appears to be well compensated at this time. She will be discharged home on p.o. Lasix. Recheck BMP in 1 week. UA revealed small UTI. Cipro has been initiated. This will be continued at discharge for a total of 5 days. Lipid panel revealed LDL 167. High intensity statin initiated. Patient will need repeat FLP in 1 month to 6 weeks. Blood pressure has been well controlled this hospitalization. Patient is anxious for discharge home. Having felt that he has met maximal medical therapy, she will be discharged home in stable condition. Patient has been given a follow-up appointment with Dr. Contreras in 1 week with CBC, BMP and EKG. Patient verbalizes understanding of discharge instructions and discharge medications. She has been given the following prescriptions at discharge: Aspirin 81 mg p.o. daily Brilinta 90 mg p.o. twice daily Cipro 250 mg p.o. every 12 hours for a total of 5 days Coreg 6.25 mg p.o. twice daily Potassium 20 mEq daily Lasix 40 mg daily Lipitor 80 mg daily Lisinopril 5 mg daily I have personally interviewed and evaluated the patient, reviewed the chart and discussed medical decision-making with Practitioner Kayley. I have read this note and agree with her documentation here in. - Time spent with patient Time with patient DS: Greater than 30 minutes Diagnosis - Discharge Diagnosis (1) Acute coronary syndrome Status: Resolved (2) Dyslipidemia Status: Chronic (3) Ischemic cardiomyopathy Status: Acute (4) Congestive heart failure Status: Acute (5) Chest pain Status: Resolved (6) History of OCD (obsessive compulsive disorder) Status: Chronic (7) History of hypertension Status: Chronic (8) UTI (urinary tract infection) Status: Acute (9) Pericardial effusion Status: Acute Specialty Discharge - Follow Up or Referrals Follow up with: Tiffany Contreras MD [Physician] - 03/20/17 9:20 am (CBC, BMP, EKG 09:20 labwork 09:40: ) Discharge Plan - Discharge Data Disposition: Disch To Home/Self Care Condition at Discharge: Stable Discharge Diet: heart healthy, low fat, low cholesterol, low salt diet Activity: no lifting (Avoid squatting and heavy lifting 1 week), other (Post cath expectations) Hygiene: may shower, other (Post cath expectations) Weight Bearing at Discharge: other (Post cath expectations) Driving: other (Post cath expectations) Contact your physician if you experience:: fever over 101, Difficulty voiding, Redness or swelling, Nausea/Vomiting, Shortness of breath, Bleeding, pain uncontrolled by pain medications - Discharge Medications New Atorvastatin [Lipitor] 80 mg PO BEDTIME #30 tablet Carvedilol [Coreg] 6.25 mg PO BID #60 tablet Furosemide Tab [Lasix Tab] 40 mg PO DAILY #30 tablet Lisinopril [Prinivil] 5 mg PO DAILY #60 tablet Potassium Chloride Cap/Tab [K Dur] 20 meq PO DAILY #30 tablet Aspirin EC Tab 81 mg PO DAILY #30 tablet Ciprofloxacin Tab [Cipro Tab] 250 mg PO Q12HR #7 tablet Ticagrelor [Brilinta] 90 mg PO BID #60 tablet Continue PARoxetine [Paxil] 40 mg PO DAILY Rivastigmine 9.5 mg/24Hr Patch [Exelon 9.5 mg/24 hr Patch] 9.5 mg TRANSDERM DAILY Discontinued Meloxicam 7.5 mg PO DAILY - Follow Up or Referral Follow Up: Tiffany Contreras MD [Physician] - 03/20/17 9:20 am (CBC, BMP, EKG 09:20 labwork 09:40: ) - Forms/Instructions Instructions: Coronary Artery Disease (GEN), Left Heart Catheterization (DC), Heart Healthy Diet (GEN), Coronary Intravascular Stent Placement, Rn Surgery (GEN) Exam - Constitutional Vitals: Period Temp Pulse Resp BP Sys/Seth Pulse Ox Last 24 Hr 96.9 F-98.5 F 71-75 14-18 96-133/51-75 95-100 Exam: General: Appears well with no apparent distress. Pleasant and cooperative. Appears comfortable. HEENT: PERRL, normocephalic, atraumatic. Mucous membranes moist. No jaundice noted. Conjunctiva moist and clear, sclerae anicteric Neck: No JVD/HJR, no thyromegaly or lymphadenopathy noted. No carotid bruit appreciated Cardiac: Regular rate and rhythm. Soft systolic murmur Lungs: Clear to auscultation. Not requiring oxygen Abdomen: Soft, bowel sounds normoactive. Nontender and nondistended. No abdominal bruit or thrill noted. No masses noted. Extremities: No clubbing, cyanosis noted. Trace edema to bilateral lower extremities. Upper extremity pulses 2+. Lower extremity pulses 2+. Capillary refill less than 3 seconds. Right groin soft without bleeding, hematoma and bruit. Skin: No unusual lesions or rashes. No skin breakdown appreciated. Neuro: Awake, alert and oriented 3. Moves all extremities well without hemiparesis or paralysis. No essential tremor is appreciated. Discharge Results Procedures and tests throughout hospitalization: Pending Orders 03/12/17 Urine Culture Routine Labs on day of discharge: Labs from last 24 hours 03/13/17 03/13/17 03/13/17 03:28 03:28 03:28 WBC 7.9 RBC 3.68 L Hgb 10.6 L Hct 33.1 L MCV 89.9 MCH 29 MCHC 32.0 RDW 14.8 Plt Count 265 MPV 11.8 Neut % (Auto) 62.9 Lymph % (Auto) 24.1 [place] % (Auto) 6.7 Eos % (Auto) 5.6 Baso % (Auto) 0.3 Neut # (Auto) 5.0 Lymph # (Auto) 1.9 [place] # (Auto) 0.5 Eos # (Auto) 0.4 Baso # (Auto) 0.0 Immature Gran % 0.4 Nucleated RBC % 0.0 Immature Gran # 0.03 Nucleated RBCs # 0.00 Immature Plt Fraction 0.0 Sodium 143 Potassium 4.1 Chloride 105 Carbon Dioxide 33 H Anion Gap 9.1 BUN 15 Creatinine 1.10 H GFR Calculation 51 BUN/Creatinine Ratio 13.00 Glucose 103 Calculated Osmolality 285.0 Calcium 9.4 Magnesium 2.2 Total Creatine Kinase 29 D CK-MB (CK-2) < 1.0 Troponin I 0.391 H D Preliminary micro results at discharge 03/12/17 Unknown Urine Culture - Preliminary Urine,Voided No Growth at 24 hours. - Imaging and Cardiology Cardiology Procedure: report reviewed by me Procedure: Chest x-ray: report reviewed by DS: Provider Date of admission: 03/11/17 05:53 Primary care physician: . No PCP Attending physician on admission: Tiffany Contreras, Consults: 03/11/17 15:00 Consult to Cardiac Rehabilitation [CONS] Routine Reason for Cardiac Rehabilitation: Risk Factor Modification Discharging clinician: Rachael Girard NP Expected date of discharge: 03/13/17 <Tiffany Contreras - Last Filed: 03/13/17 17:32> Diagnosis - Discharge Diagnosis (1) Acute coronary syndrome Status: Resolved (2) History of hypertension Status: Chronic (3) History of OCD (obsessive compulsive disorder) Status: Chronic
[2017-03-13 11:25] VITALS: BP 96/56
--- NOTE | 2017-03-13 11:53 | Physician Query Form ---
CLICK EDIT DOCUMENT TO SELECT QUERY ANSWER --> OK --> SIGN Emperatriz Melara RN Clinical Pharmacy Technician Instructor W) [phone] (f) [phone] [email or web address] PROVIDERS: Make your selection(s) from the choices in EACH section by typing an "x" and enter comments in the comment section. Please use your independent medical judgment in providing your response. This request does not imply that any particular answer is desired or expected. CLINICAL INDICATORS: (Providers should not edit this section) Based on lab results of creatinine on admission of 1.40 with a GFR of 37 and decreased to 1.00. Pt. treated with IV fluids of 1/2 Normal Saline. Clarify which of the following most accurately represents the patient's renal status: ( ) Acute kidney injury (non-traumatic) ( ) Acute renal failure ( ) Acute renal failure with underlying Chronic Kidney Disease (CKD) - please provide stage below ( ) CKD - please provide stage below ( ) Other, please specify: ( x) Clinically unable to determine Chronic Kidney Disease Stages Source: National Kidney Disease Foundation ( ) Stage I (eGFR > or = 90) ( ) Stage II (eGFR 60 - 89) ( ) Stage III (eGFR 30 - 59) ( ) Stage IV (eGFR 15 - 29) ( ) Stage V (eGFR < 15 or dialysis) COMMENTS: PLEASE ALSO DOCUMENT RESPONSE IN PROGRESS NOTES AND/OR DISCHARGE SUMMARY Use of terms such as suspected, likely, or probable (associated with a specific diagnosis that is being evaluated, monitored, or treated as if it exists) are acceptable and can be restated in the discharge summary if not ruled out. MTDD
[2017-03-14] MEDS ORDERED: FUROSEMIDE 40 MG TABLET PO SCH (09:00)
== END 2017-03-13 13:40 | disposition home or self-care (01) | DRG 246 ==
LOC: EDUNIT# → EDBD → N.ED 04:17 → N.EDINP 05:53 → N.CC 06:17 → N.TELES 03-12 17:10
PROVIDERS: ADMIT Internal Medicine Cardiovascular Disease; ATTEND Internal Medicine Cardiovascular Disease
PROC: CLCCHCL (ICD-10-PCS; 2017-03-11 13:45)

== ENCOUNTER 2017-03-17 14:49 | Observation (INO) ==
--- NOTE | 2017-03-17 15:20 | XRay Report ---
XR chest 2V Date: 03/17/2017 3:02 PM History: Chest tightness, shortness of breath Comparison: 03/12/2017 Technique: PA and lateral chest Findings: The heart is minimally enlarged with arterial calcifications. Minimal chronic scarring in the lungs with no acute parenchymal findings. Unremarkable mediastinum with degenerative changes. Impression: No acute cardiopulmonary pathology identified. PROCEDURE INTERPRETED AT [facility] DEPARTMENT OF RADIOLOGY Final Report Signed by: Dr. Rebecca Medrano
[2017-03-17] MEDS ORDERED: ASPIRIN 325 MG TABLET ONE (15:34)
[2017-03-17] MEDS ORDERED: ENOXAPARIN 100 MG/ML SYRINGE SUBCUT ONE (15:34)
--- NOTE | 2017-03-17 15:37 | EKG Report ---
Stationary ECG Study [facility] ER Test Date: 03/17/2017 3:04:47 PM Pat Name: AC HAILE Department: Room: Gender: F Motion Study Technician: Garry Sweeney : 1940 Requested by: Georgia Reaves Order Number: [id number] Reading MD: SCHUYLER ESCOBAR Intervals [place] Rate: 75 P: -39 MA: 134 QRS: -83 QRSD: 101 T: 94 QT: 404 QTc: 433 Interpretive Statements SINUS RHYTHM LEFT ANTERIOR FASCICULAR BLOCK ANTEROSEPTAL INFARCT, PROBABLY RECENT T WAVE ABNORMALITY, POSSIBLE LATERAL ISCHEMIA Electronically Signed On 03-17-17 19:30:11 CDT by SCHUYLER ESCOBAR [email or web address]
[2017-03-17] MEDS ORDERED: ASPIRIN 325 MG TABLET PO STA ×2 (15:39→15:47)
[2017-03-17] MEDS ORDERED: ENOXAPARIN 100 MG/ML SYRINGE SUBCUT STA (15:39)
[2017-03-17 15:42] LABS: Basophils % 0.4 % (0.0-0.8); Eosinophils # 0.4 10*3/uL (0.0-0.87); Eosinophils % 3.7 % (0.00-10.9); Hematocrit 38.5 VOL% (35.7-47.0); Hemoglobin 12.5 GM/DL (12.0-16.0); Immature Granulocytes % 0.5 %; Immature Granulocytes Absolute 0.05 #; Lymphocytes # 1.8 10*3/uL (1.4-4.0); Lymphocytes % 17.5 % (21.3-54.2); Mean Corpuscular HGB Conc 32.5 GM/DL (32-36); Mean Corpuscular Hemoglobin 29 PG (27-34); Mean Corpuscular Volume 88.3 FL (87-102); Mean Platelet Volume 11.1 FL (9.6-12.0); Monocytes # 0.7 10*3/uL (0.11-0.8); Monocytes % 6.8 % (1.7-12.7); Neutrophils # 7.3 10*3/uL (1.4-7.4); Neutrophils % 71.1 % (38.7-73.9); Platelet Count 366 T/CUMM (130-400); Red Blood Count 4.36 MC/CUMM (3.8-5.5); Red Cell Distribution Width 14.7 % (9.3-17.3); White Blood Count 10.2 T/CUMM (4-12)
--- NOTE | 2017-03-17 15:42 | Emergency Department Note ---
Arrival - Arrival Chief Complaint: Chest Pain Stated Complaint: throwing up/diarrhea/body aches/loss of appetite ED Nursing Triage Note: C/O Having SOB and nausea since last pm., states she is also having chest tightness, states the chest tightness started around 1100 today., + nausea/vomiting last pm., + diaphoresis today., ekg obtained at time of triage Mode of Arrival: Wheelchair Limitations: No Limitations Source: Patient, Family Time Seen by Provider: 03/17/17 15:34 - History of Present Illness HPI Narrative: The patient is a difficult historian and often contradicts the family as well as herself. The patient complains of onset of shortness of breath, nausea and chest tightness starting around 11:00 today. She also had some diaphoresis and neck pain, although the neck pain is, at least to some extent, chronic. Unclear whether she actually had any chest pain but states this feels the same as it did with her recent [place]. She is having no pain or SOB at present. She had a stent done by Dr. Dorantes 6 days ago. She was discharged just 4 days ago and had been doing well up until today. I have not had a chance to review the old records, however, her daughter says that she had one stent and angioplasty. She states there was near complete occlusion of the "main artery." Allergies/Adverse Reactions: Allergies Allergy/AdvReac Type Severity Reaction Status Date / Time clonazepam [From Klonopin] AdvReac Confusion Verified 03/11/17 09:36 prochlorperazine AdvReac Confusion Verified 03/11/17 09:36 [From Compazine] quetiapine [From Seroquel] AdvReac Confusion Verified 03/11/17 09:36 risperidone [From Risperdal] AdvReac Nausea Verified 03/17/17 15:01 Home Medications: Home Medications Medication Instructions Recorded Confirmed Type PARoxetine [Paxil] 40 mg PO DAILY 03/11/17 03/17/17 History Rivastigmine 9.5 mg/24Hr Patch 9.5 mg TRANSDERM DAILY 03/11/17 03/17/17 History [Exelon 9.5 mg/24 hr Patch] Aspirin EC Tab 81 mg PO DAILY #30 tablet 03/13/17 03/17/17 Rx Atorvastatin [Lipitor] 80 mg PO BEDTIME #30 tablet 03/13/17 03/17/17 Rx Carvedilol [Coreg] 6.25 mg PO BID #60 tablet 03/13/17 03/17/17 Rx Furosemide Tab [Lasix Tab] 40 mg PO DAILY #30 tablet 03/13/17 03/17/17 Rx Lisinopril [Prinivil] 5 mg PO DAILY #60 tablet 03/13/17 03/17/17 Rx Ticagrelor [Brilinta] 90 mg PO BID #60 tablet 03/13/17 03/17/17 Rx Potassium Chloride Cap/Tab [K Dur] 10 meq PO BID 03/17/17 03/17/17 History Review of System - Review of System 12 point system: reviewed and no additional remarkable complaints except as stated - Review of System Constitutional: Present: diaphoresis Respiratory: Present: respiratory distress Cardiovascular: Present: chest pain Gastrointestinal: Present: nausea, vomiting Medical,Surgical,& Family Hx - Medical History Cardio: History of: CAD, [place] Psychological: History of: Anxiety Disorders, Depression, Psychiatric Problems ( OCD) Neurology: History of: Dementia HEENT: History of: Eye Problem (CATERAC SX BOTH EYES) Renal: History of: Renal Problems (NOT ALLOW TO TAKE IBUPROFEN D/T PAST BUMPED LABS FROM RISPERDAL) Genitourinary: History of: Recurring Urinary Tract Infections Other: History of: Miscellaneous Medical Problems (SEPTIC FROM UTI) - Surgical History Cardiac Surgeries: Sugical HX of: Cardiac Catheterization Abdominal Surgeries: Surgical HX of: Appendectomy Orthopedic Surgeries: Surgical HX of;: Total Knee Replacement (LEFT) - Family History Family History: Reports;: Family Anesthesia Reaction (PT SEVERLY CONFUSED AFTER. ) - Social History Smoking Status: Never smoker Frequency of Alcohol Use: None Type of Drug Use: None Exam Physical Examination: GENERAL: Alert. No acute distress. HEENT: Normocephalic and atraumatic. There is no nasal drainage. No pharyngeal erythema or exudate. NECK: Normal inspection. Supple. No lymphadenopathy or meningismus. LUNGS: No respiratory distress. Clear to auscultation bilaterally, no wheezes, rales or rhonchi. HEART: Regular rate and rhythm. ABDOMEN: Soft, nontender and nondistended with normoactive bowel sounds. BACK: Normal inspection. SKIN: Color normal. Warm and dry. EXTREMITIES: Nontender. Normal range of motion. No pedal edema. NEUROLOGICAL/PSYCHIATRIC: Alert and oriented -3 with normal mood and affect. Cranial nerves normal. No motor or sensory deficit. Vital Signs: Vital Signs Temperature 97.6 F 03/18/17 08:00 Pulse Rate 75 03/18/17 08:00 Respiratory Rate 20 03/18/17 10:00 Blood Pressure 133/70 03/18/17 08:00 O2 Sat by Pulse Oximetry 97 03/18/17 08:00 Course - Reevaluation(s) Reevaluation #1: The patient's EKG was found lying on my desk at 1528. The appearance was of a STEMI. I immediately had them bring the patient back from the waiting room. A brief H&P was done and Dr. Greenfield was called. We are transporting the patient to the [facility]. I ordered aspirin and Lovenox. Labs are still pending at this time. Time: 15:42 Results - Labs CBC & BMP: 03/17/17 15:34 03/18/17 08:21 - Impressions EKG shows a sinus rhythm at [address] elevation in 23F and V3 through V5. An EKG prior to discharge showed some similarities, however, the ST elevations on the current one seem to be more pronounced and widespread. Consistent with STEMI. Critical Care Time Total Critical Care Time: 30 Disposition Clinical Impression: Chest pain, ST elevation myocardial infarction (STEMI) Case discussed with: patient, patient's family Disposition: Still a Patient Condition: Critical Time of Disposition: 15:44
[2017-03-17] MEDS ORDERED: METOPROLOL TARTRATE 5 MG/5 ML VIAL IV STA (15:47)
[2017-03-17] MEDS ORDERED: LIDOCAINE 1% 20 ML VIAL ONE (15:48)
[2017-03-17] MEDS ORDERED: fentaNYL 100 MCG/2 ML VIAL ONE (15:49)
[2017-03-17] MEDS ORDERED: MIDAZOLAM 2 MG/2 ML VIAL ONE (15:49)
--- NOTE | 2017-03-17 16:02 | Cardiology History & Physical ---
Assessment and Plan (1) Neck pain Status: Acute Assessment and plan: I suspect some of this is chronic this or she actually came in with. Current Visit: Yes (2) Abnormal ECG Status: Acute Assessment and plan: This is abnormal I think this is now chronically abnormal any evolving ECG from her stay me 1 week ago. Current Visit: Yes (3) History of hypertension Status: Chronic Assessment and plan: We will monitor this and treat accordingly. Current Visit: No (4) History of OCD (obsessive compulsive disorder) Status: Chronic Assessment and plan: No medications. Current Visit: No (5) Dyslipidemia Status: Chronic Assessment and plan: No medications. Current Visit: No (6) Ischemic cardiomyopathy Status: Acute Assessment and plan: This is noted on her evaluation one week ago. Current Visit: No History of Present Illness Chief complaint: Neck pain History of present illness: Ms. Shelton is a 76 year old female who presented to the emergency room today stating that she had neck pain and an EKG was found ST segment elevation across anterior leads. Dr. Hammer in the emergency room called ok stated the patient was having acute ST segment elevation myocardial infarction on EKG and having chest pain, the patient presently denies having any chest pain today or the last several days and actually since discharge. The patient is not having any more shortness of breath than she usually has. The ECG indeed does reveal some ST segment elevation but looking back of her old ECGs the ST segments were abnormal is some has some ST elevation. She recently had LAD stenting on 03/11/17 with a 3.0 x 23 Xience alpine stent. Patient is for cardiac catheterization based on emergency room's declaration of ST segment elevation myocardial infarction. I did quickly discuss with the patient cardiac catheterization again. I discussed cardiac catheterization and percutaneous coronary intervention with the patient and available family. I reviewed with them the indications for the procedure and the basis of how the procedure would be carried out. I also reviewed with them the risk of the procedure which include but not necessarily limited to access site bleeding, bruising, pain, swelling or vascular injury that may require emergency vascular surgery, blood transfusion, or thrombin injection. Also discussed the possibility of stroke, myocardial infarction, arrhythmia which may require electrocardioversion, and the possibility of dye reaction that would require medical therapy. Also discussed the possibility of coronary artery injury, ruptured, closure or perforation that may require emergency bypass surgery. We also discussed the possibility of from a major complication. They voice understanding and agree to proceed. Post cardiac catheterization I was able to discuss further with the patient. The patient states she has only had posterior neck pain and no chest pain. She may have a little shortness of breath but but she is really not clear on this. She denies any nausea vomiting or GI complaints. She is a couple times felt like she may have some nausea developing. In talking with the daughter and the daughter states that she has been having nausea vomiting diarrhea all of which the patient denies. The daughter is not real clear she ever had any chest pain. Daughter states that the patient has some level of dementia but this is not documented in her medical records. The post heart catheterization reveals LAD stent to be widely patent. The diagonal branch that was ballooned through the stent looks stable. The ramus intermedius it was present is very small with diffuse disease. The RCA is unchanged. LV gram was not done secondary to creatinine 1.2 which is up a little bit from previous. As noted about getting 2 different stories and the patient and then the daughter. I do not know how much of this may be related to the patient's history of dementia at least by the patient and there is mention of it in the chart. Home Medications Medication Instructions Recorded Confirmed Type PARoxetine [Paxil] 40 mg PO DAILY 03/11/17 03/17/17 History Rivastigmine 9.5 mg/24Hr Patch 9.5 mg TRANSDERM DAILY 03/11/17 03/17/17 History [Exelon 9.5 mg/24 hr Patch] Aspirin EC Tab 81 mg PO DAILY #30 tablet 03/13/17 03/17/17 Rx Atorvastatin [Lipitor] 80 mg PO BEDTIME #30 tablet 03/13/17 03/17/17 Rx Carvedilol [Coreg] 6.25 mg PO BID #60 tablet 03/13/17 03/17/17 Rx Furosemide Tab [Lasix Tab] 40 mg PO DAILY #30 tablet 03/13/17 03/17/17 Rx Lisinopril [Prinivil] 5 mg PO DAILY #60 tablet 03/13/17 03/17/17 Rx Ticagrelor [Brilinta] 90 mg PO BID #60 tablet 03/13/17 03/17/17 Rx Potassium Chloride Cap/Tab [K Dur] 10 meq PO BID 03/17/17 03/17/17 History Allergies Allergy/AdvReac Type Severity Reaction Status Date / Time clonazepam [From Klonopin] AdvReac Confusion Verified 03/11/17 09:36 prochlorperazine AdvReac Confusion Verified 03/11/17 09:36 [From Compazine] quetiapine [From Seroquel] AdvReac Confusion Verified 03/11/17 09:36 risperidone [From Risperdal] AdvReac Nausea Verified 03/17/17 15:01 12 point system: reviewed and no additional remarkable complaints except as stated Medical,Surgical,& Family Hx - Medical History Cardio: History of: CAD, [place] Psychological: History of: Anxiety Disorders, Depression, Psychiatric Problems ( OCD) Neurology: History of: Dementia HEENT: History of: Eye Problem (CATERAC SX BOTH EYES) Renal: History of: Renal Problems (NOT ALLOW TO TAKE IBUPROFEN D/T PAST BUMPED LABS FROM RISPERDAL) Genitourinary: History of: Recurring Urinary Tract Infections Other: History of: Miscellaneous Medical Problems (SEPTIC FROM UTI) - Surgical History Cardiac Surgeries: Sugical HX of: Cardiac Catheterization Abdominal Surgeries: Surgical HX of: Appendectomy Orthopedic Surgeries: Surgical HX of;: Total Knee Replacement (LEFT) - Family History Family History: Reports;: Family Anesthesia Reaction (PT SEVERLY CONFUSED AFTER. ) - Social History Smoking Status: Never smoker Frequency of Alcohol Use: None Type of Drug Use: None Functional capacity: independent ambulation Cardiology Physical Exam - Constitutional Vitals: Vital Signs Temp Pulse Resp BP Pulse Ox 98.2 F 82 18 115/63 99 03/17/17 15:37 03/17/17 15:37 03/17/17 15:37 03/17/17 15:37 03/17/17 15:40 Intake and Output 03/16/17 03/17/17 03/17/17 23:59 07:59 15:59 Other: Weight 66.224 kg Patient Weight 03/17/17 23:59 Weight 66.224 kg Exam: General appearance: normal weight to thin, no acute distress Head exam: normal inspection, atraumatic Eye exam: Pupils are equal and reactive. EOMI. There is no trauma. Ear exam: Anatomically normal. Normal auditory acuity to conversation. Oral exam: No significant oral lesions. Neck exam: normal inspection no JVD. No carotid bruit. Trachea is in midline. Respiratory exam: clear to auscultation bilaterally posteriorly and anteriorly with good air movement. No rales, rhonchi or wheezes. Cardiovascular exam: regular rate and rhythm, no murmur or gallop or rub. No precordial lift. No bruits over the major arteries. Chest wall/torso: Anatomically normal. No tenderness, deformity Peripheral Pulses: 2+ throughout. GI/Abdominal exam: normal bowel sounds, soft and nontender, no abdominal bruits or pulsatile masses. Musculoskeletal/Extremities exam: normal inspection without edema or cyanosis. No deformities or trauma. Neurological exam: alert, oriented X3. There is no gross neurologic deficits. Psychiatric exam: normal affect, normal mood. Cognitive function is grossly intact. Skin exam: normal color, warm. No rashes or other skin lesions. Result/EKG - Labs CBC & BMP: 03/17/17 15:34 03/17/17 15:34 Labs: Laboratory Results - last 24 hr 03/17/17 15:34 WBC 10.2 RBC 4.36 Hgb 12.5 Hct 38.5 MCV 88.3 MCH 29 MCHC 32.5 RDW 14.7 Plt Count 366 MPV 11.1 Neut % (Auto) 71.1 Lymph % (Auto) 17.5 L [place] % (Auto) 6.8 Eos % (Auto) 3.7 Baso % (Auto) 0.4 Neut # (Auto) 7.3 Lymph # (Auto) 1.8 [place] # (Auto) 0.7 Eos # (Auto) 0.4 Baso # (Auto) 0.0 Immature Gran % 0.5 Nucleated RBC % 0.0 Immature Gran # 0.05 Nucleated RBCs # 0.00 Immature Plt Fraction 0.0 - Impressions Impressions: Patient was sinus rhythm with anterior myocardial infarction with left axis deviation and ST segment elevation across the inferior and anterior lateral leads. Some lateral leads and aVL has depression. Reviewing old ECGs this was present to some degree and prior ECGs. This probably represents evolving changes from her recent STEMI.
--- NOTE | 2017-03-17 16:03 | History and Physical Update ---
Sedation H&P Update - History and Physical H&P was reviewed, the patient examined and there: are no changes in the patients condition since last H&P was completed. - Dictation Physical: refer to H&P completed by admitting physician - Physical Exam Mental Status: alert and oriented Heart: regular rate and rhythm Lung: clear to auscultation Abdomen: within normal limits Vitals: within normal limits History and Physical Changes: None - Sedation Plan for Sedation: moderate Patient Consent: Procedure disscussed with patient and patinet has consented., Risks and benefits were discussed with patient,including infection,, bleeding, injury to surrounding structures, seizure, temporary nerve, Patient understands and accepts potential risks/benefits and agrees to, proceed. ASA Class: III Airway Assessment: Class III: Soft palate, base of uvula visible
[2017-03-17 16:07] LABS: Alanine Aminotransferase 28 U/L (13-56); Albumin 3.3 G/DL (3.4-5.0); Alkaline Phosphatase 124 U/L (45-117); Aspartate Amino Transferase 29 U/L (0-37); Blood Urea Nitrogen 21 MG/DL (7-18); Calcium 9.6 MG/DL (8.5-10.1); Glucose 104 MG/DL (74-106); Osmolality,Calculated 275.8 MOS/KG (273-304); Potassium 3.9 MMOL/L (3.5-5.1); Sodium 137 MMOL/L (136-145); Total Protein 7.1 G/DL (6.4-8.3); Troponin I Only 0.042 NG/ML (0.00-0.045)
[2017-03-17] MEDS ORDERED: ACETAMINOPHEN 325 MG TABLET PO PRN (16:23)
[2017-03-17] MEDS ORDERED: ONDANSETRON 4 MG/2 ML VIAL IV PRN (16:23)
[2017-03-17] MEDS ORDERED: NITROGLYCERIN SL 0.4 MG TABLET SL PRN (16:23)
[2017-03-17] MEDS ORDERED: ZALEPLON 5 MG CAPSULE PO PRN (16:23)
--- NOTE | 2017-03-17 16:23 | Operative Note ---
Date of procedure: 03/17/17 Procedure Preformed: Left heart catheterization specifically along with right left coronary angiography. Surgeon / Physician: Johnson Greenfield Master Black Belt: Umer Wang Post-op diagnosis: same Findings: No acute occlusion. Patient's LAD stent is widely patent. The first diagonal that had PTCA carried out last intervention 1 week ago were asked to look as good or better. No real changes. Specimens: none sent Estimated blood loss: minimal Condition: stable Anesthesia: local, conscious sedation Disposition: floor
[2017-03-17] MEDS ORDERED: SODIUM CHLORIDE 0.9% 1,000 ML IV SCH (16:30)
--- NOTE | 2017-03-17 16:55 | Cardiac Catheterization ---
Date of Procedure:: 03/17/17 Pre-op Diagnosis: ST segment elevation microinfarction per ER Post-op diagnosis: same Procedure: LEFT HEART CATHERIZATION History: 76-year-old female who 1 week ago had STEMI has stenting of LAD. Had PTCA of a small diagonal branch through the stent. The patient presented as per the emergency room with chest pain shortness of breath and ST segment elevation microinfarction. In my discussion with the patient she complained only neck pain. This neck pain is posterior. She denies any chest pain she denies shortness of breath. Regular bit different story from the daughter who states that she had nausea vomiting which the patient denies. Pre-Op diagnosis: ST segment elevation microinfarction Postoperative diagnosis: Patent LAD stent and patient is not having ST segment elevation microinfarction. Procedures: 1. Selective left and right coronary angiograms. 2. Left common femoral artery angiogram with Angio-Seal hemostasis. Equipment: 6 Jordanian arterial sheath, 6 Jordanian diagnostic JR4 diagnostic catheter, PCI EBU 3.5 catheter, a 6 Jordanian Angio-Seal hemostatic device. Medications: Preoperative Benadryl and Valium given by mouth. Lidocaine 1% local anesthesia mls administered by myself. Intraprocedure patient received Versed mgs IVP, fentanyl mcg IVP, Dilaudid mgs IVP. Complications: None immediate. Contrast: Visipaque 60 milliliters. Description of procedure: After informed consent the patient was given preoperative medications and brought to the catheterization laboratory where their left groin was prepped and draped in usual fashion. IV sedation was then obtained after which local anesthesia was administered at the left groin over the left common femoral artery. Using modified Seldinger technique the left common femoral artery was cannulated with 6 Jordanian arterial sheath placed. The JR 4 rodiagnostic coronary catheter was then advanced retrograde through the aorta and used to cannulate the right coronary artery of which angiograms were obtained in multiple projections. We then removed the right coronary catheter and a EBU 3.5 interventional catheter was advanced with the idea that the patient may have occlusion of the LAD stent. This catheter was used to cannulate the left main coronary artery and angiograms of the left coronary system were obtained. Angiograms were then reviewed. There was no acute occlusion or occlusion to account for the patient's EKG. The the EBU catheter was pulled back into the sheath was then removed. Hand-injection the left common femoral artery was obtained after which Angio-Seal hemostasis was achieved. Hemodynamic data: AO root 109/50, mean 73. Left ventricular angiogram: Not done to conserve contrast and with her creatinine elevated some. Left main coronary artery angiogram: Limited cord is a large caliber vessel that trifurcates LAD circumflex artery in the ramus intermedius. It is without stenosis or disease. Left anterior descending artery angiogram: The LAD proximally is at least a medium sized vessel much smaller than the circumflex artery. The LAD extends around the apex where we see the vessel extremely small what is probably some high-grade stenosis but again this is extremely small vessel distally. There is also what appears to be myocardial bridging at the apex. The proximal stent in the LAD is widely patent. There is luminal irregularities and less than 20% stenosis otherwise in the LAD proper. The first diagonal has what is probably at least 50% ostial proximal stenosis is actually a little better than probably what was present at the last angiograms a week ago. Circumflex artery angiogram: Circumflex arteries a large caliber vessel and is codominant with the RCA. First diagonal branch is a medium large size vessel with 50% proximal stenosis and some luminal irregularities distally. Second obtuse marginal branch is small caliber vessel. Distally there is to posterior ventricular branches one which may actually give the distribution of the PDA. Other than the first diagonal branch having disease as noted the circumflex artery and branches were widely patent. Ramus intermedius artery angiogram: This artery is very small and diffusely diseased with stenosis 70+%. Right coronary artery angiogram: This is a relatively small codominant vessel that is widely patent without stenosis or disease. Left common femoral artery angiogram: Left common femoral artery is intact and patent successfully initial hemostasis. Impression: 1. LV gram not done. 2. Left sided pressures in the left ventricle not measured. 3. Right coronary is probably codominant and widely patent. 4. Left main coronary is large and widely patent. 5. Circumflex arteries probably codominant and widely patent with the exception the first obtuse marginal branch that has 50% stenosis at worst. 6. LAD with luminal irregularities widely patent proximal stent. Distally LAD has some high-grade stenosis in the apical region is extremely small. 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 First diagonal with 50 % stenosis. 7. Left comfort arteries patent with successful Angio-Seal hemostasis. Discussion: We will marked the patient post procedure. Will evaluate her renal function tomorrow. We will continue her risk factor modifications. We will make further recommendations as needed. Implants: See above Anesthesia: local, moderate conscious sedation Surgeon / Physician: Johnson Greenfield Blue Line Trimmer: other (RT [place]ica) Estimated blood loss: minimal Specimens: none sent Condition: stable Disposition: floor - Discharge Disposition: Still a Patient - Medications / Follow-up
[2017-03-17 17:34] LABS: Eosinophils 3 % (0-10); Lymphocytes 11 % (20-55); Platelet Estimate Normal; Segmented Neutrophils 80 % (50-85); Total Cells Counted 100
[2017-03-17] MEDS: PANTOPRAZOLE 40 MG TABLET PO SCH (18:14)
[2017-03-17] MEDS ORDERED: ATORVASTATIN 80 MG TABLET PO SCH (21:00)
[2017-03-17] MEDS: TICAGRELOR 90 MG TABLET PO SCH (21:20)
[2017-03-17] MEDS: CARVEDILOL 6.25 MG TABLET PO SCH (21:21)
[2017-03-17] MEDS: POTASSIUM CHLORIDE 20 MEQ TABLET PO SCH (21:21)
--- NOTE | 2017-03-18 07:39 | EKG Report ---
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
[2017-03-18] MEDS ORDERED: RIVASTIGMINE 9.5 MG/24 HR PATCH TRANSDERM SCH (09:00)
[2017-03-18] MEDS ORDERED: ASPIRIN EC 81 MG TABLET PO SCH (09:00)
[2017-03-18] MEDS ORDERED: FUROSEMIDE 40 MG TABLET PO SCH (09:00)
[2017-03-18] MEDS ORDERED: LISINOPRIL 2.5 MG TABLET PO SCH (09:00)
[2017-03-18] MEDS ORDERED: PARoxetine 20 MG TABLET PO SCH (09:00)
[2017-03-18 09:08] LABS: Calcium 9.3 MG/DL (8.5-10.1); Osmolality,Calculated 278.5 MOS/KG (273-304); Potassium 3.6 MMOL/L (3.5-5.1)
[2017-03-18 09:10] LABS: Troponin I Only 0.073 NG/ML (0.00-0.045)
[2017-03-18] MEDS: CARVEDILOL 6.25 MG TABLET PO SCH (09:20)
[2017-03-18] MEDS: POTASSIUM CHLORIDE 20 MEQ TABLET PO SCH (09:20)
[2017-03-18] MEDS: TICAGRELOR 90 MG TABLET PO SCH (09:21)
[2017-03-18] MEDS: PANTOPRAZOLE 40 MG TABLET PO SCH (09:21)
--- NOTE | 2017-03-18 11:27 | Discharge Summary ---
<Yanely Zaldivar E - Last Filed: 03/18/17 11:27> Hospital Course - Hospital Course Hospital Course: EAP COUNSELOR: DR. CONTRERAS March 17, 2017 Ms. Shelton presented to the emergency room stating she had neck pain and an EKG was found ST segment elevation across anterior leads. Dr. Hammer in the emergency room contacted Dr. Greenfield with his concerns. Patient denied having chest pain or a change in her chronic SOB. The ECG indeed did reveal some ST segment elevation but looking back of her old ECGs the ST segments were abnormal as some had some ST elevation. She recently had LAD stenting on 03/11/17 with a 3.0 x 23 Xience alpine stent. She subsequently underwent heart catheterization performed by Dr. Greenfield with the following impression noted: Impression: 1. LV gram not done. 2. Left sided pressures in the left ventricle not measured. 3. Right coronary is probably codominant and widely patent. 4. Left main coronary is large and widely patent. 5. Circumflex arteries probably codominant and widely patent with the exception the first obtuse marginal branch that has 50% stenosis at worst. 6. LAD with luminal irregularities widely patent proximal stent. Distally LAD has some high-grade stenosis in the apical region is extremely small. 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 First diagonal with 50% stenosis. 7. Left comfort arteries patent with successful Angio-Seal hemostasis. She did not undergo LV gram as she had a recent echo which revealed EF of 35%. Discussion: Monitor patient post procedure. Follow renal function closely. Risk factor modification. Tolerated the procedure well without complication. She was returned to our telemetry unit in stable condition. Post cardiac catheterization Dr. Greenfield was able to discuss further with the patient. The patient stated she had only had posterior neck pain and no chest pain. She may have a little shortness of breath but was was unsure. Denied nausea, vomiting or GI complaints. In talking with the daughter, daughter stated she has been having nausea, vomiting diarrhea all of which the patient denies. The daughter is not real clear she ever had any chest pain. Daughter stated that the patient has some level of dementia but this is not documented in her medical records. The post heart catheterization reveals LAD stent to be widely patent. The diagonal branch that was ballooned through the stent looks stable. The ramus intermedius it was present is very small with diffuse disease. The RCA is unchanged. LV gram was not done secondary to creatinine 1.2 which is up a little bit from previous. She did NOT have STEMI/NSTEMI or AMI. Overnight, patient has done well. Labs are stable. She has been ambulating without difficulty. Left groin is soft, free of hematoma or bruit. Having felt she is met maximal medical therapy, patient is being discharged home in stable condition. Currently has a follow-up appoint with Dr. Contreras in [address] Greenfield has instructed patient to keep this appointment. Patient's daughter has asked about continuing to use Angela for her sinus drainage. Dr. Greenfield has approved. She will resume her preadmission medications including the following: Aspirin 81 mg orally daily Atorvastatin 80 mg orally each evening Coreg 6.25 mg orally twice daily Lasix 40 mg orally daily Lisinopril 5 mill grams orally daily Nitroglycerin sublingual as needed Brilinta 90 mg orally twice daily Potassium chloride 10 mEq orally twice daily Pantoprazole 40 mg orally daily She will resume her other noncardiac preadmission medications as well per I have personally interviewed and examined the patient today as well as review her chart discuss his case with Yanely Zaldivar NP. Discussed the patient's present status with her and her daughter present. I think generally she is doing well. She has had no GI complaints or chest pain or other complaints since being admitted. Her lab work is stable. I think she is reached maximum benefit. It is unlikely that her symptomatology for which she was admitted with was cardiac in nature. She will keep her follow-up in [address] Contreras. - Time spent with patient Time with patient DS: Greater than 30 minutes Diagnosis - Discharge Diagnosis (1) Abnormal ECG Status: Chronic (2) Ischemic cardiomyopathy Status: Chronic (3) Dyslipidemia Status: Chronic (4) History of OCD (obsessive compulsive disorder) Status: Chronic (5) History of hypertension Status: Chronic (6) Acute coronary syndrome Status: Resolved Specialty Discharge - Follow Up or Referrals Follow up with: Tiffany Contreras MD [Physician] - (Keep follow-up appointment this week as previously scheduled. ) Discharge Plan - Discharge Data Disposition: Disch To Home/Self Care Condition at Discharge: Stable Discharge Diet: heart healthy Activity: other (Post cath expectations) Hygiene: other (Post cath expectations) Weight Bearing at Discharge: other (Post cath expectations) Driving: other (Post cath expectations) Contact your physician if you experience:: fever over 101, Difficulty voiding, Redness or swelling, Nausea/Vomiting, Shortness of breath, Bleeding, pain uncontrolled by pain medications - Discharge Medications New Pantoprazole Tab [Protonix Tab] 40 mg PO DAILY #30 tablet Continue PARoxetine [Paxil] 40 mg PO DAILY Atorvastatin [Lipitor] 80 mg PO BEDTIME #30 tablet Carvedilol [Coreg] 6.25 mg PO BID #60 tablet Furosemide Tab [Lasix Tab] 40 mg PO DAILY #30 tablet Lisinopril [Prinivil] 5 mg PO DAILY #60 tablet Potassium Chloride Cap/Tab [K Dur] 10 meq PO BID Rivastigmine 9.5 mg/24Hr Patch [Exelon 9.5 mg/24 hr Patch] 9.5 mg TRANSDERM DAILY Aspirin EC Tab 81 mg PO DAILY #30 tablet Ticagrelor [Brilinta] 90 mg PO BID #60 tablet - Follow Up or Referral Follow Up: Tiffany Contreras MD [Physician] - (Keep follow-up appointment this week as previously scheduled. ) - Forms/Instructions Instructions: Myocardial Infarction (GEN), Left Heart Catheterization (DC), Heart Healthy Diet (GEN), Coronary Intravascular Stent Placement (DC) Additional Discharge Instructions: Please remove dressing from left groin prior to discharge. Exam - Constitutional Vitals: Period Temp Pulse Resp BP Sys/Seth Pulse Ox Last 24 Hr 97.2 F-98.5 F 64-82 16-25 101-133/47-85 96-100 Exam: General: [Appears well with no apparent distress.] [Pleasant and cooperative. ] [Appears comfortable.] HEENT: [PERRL, normocephalic, atraumatic. Mucous membranes moist. No jaundice noted. Conjunctiva moist and clear, sclerae anicteric] Neck: No JVD/HJR, no thyromegaly or lymphadenopathy noted. No carotid bruit appreciated Cardiac: [Regular rate and rhythm.] [No murmur rub or gallop.] Lungs: [Clear to auscultation without accessory muscle use to assist the respiratory pattern.] Not requiring oxygen Abdomen: Soft, bowel sounds normoactive. Nontender and nondistended. No abdominal bruit or thrill noted. No masses noted. Musculoskeletal: No fluid collection. Decreased range of motion is noted. Extremities: Left groin soft, free of hematoma or bruit. No clubbing, cyanosis noted. [ No edema noted.] Upper extremity pulses 2+. Lower extremity pulses 2+ . Capillary refill less than 3 seconds. Skin: No unusual lesions or rashes. No skin breakdown appreciated. Neuro: Awake, alert and oriented 3. Moves all extremities well without hemiparesis or paralysis. No essential tremor is appreciated. Discharge Results Labs on day of discharge: Labs from last 24 hours 03/18/17 03/17/17 03/17/17 08:21 15:34 15:34 WBC 10.2 RBC 4.36 Hgb 12.5 Hct 38.5 MCV 88.3 MCH 29 MCHC 32.5 RDW 14.7 Plt Count 366 MPV 11.1 Neut % (Auto) 71.1 Lymph % (Auto) 17.5 L [place] % (Auto) 6.8 Eos % (Auto) 3.7 Baso % (Auto) 0.4 Neut # (Auto) 7.3 Lymph # (Auto) 1.8 [place] # (Auto) 0.7 Eos # (Auto) 0.4 Baso # (Auto) 0.0 Total Counted 100 Immature Gran % 0.5 Nucleated RBC % 0.0 Immature Gran # 0.05 Segmented Neutrophils 80 Lymphocytes 11 L Monocytes 6 Eosinophils 3 Nucleated RBCs # 0.00 Platelet Estimate Normal Immature Plt Fraction 0.0 Sodium 139 Potassium 3.6 Chloride 104 Carbon Dioxide 29 Anion Gap 9.6 BUN 15 Creatinine 1.20 H GFR Calculation 41 BUN/Creatinine Ratio 12.00 Glucose 109 H Calculated Osmolality 278.5 Calcium 9.3 Total Bilirubin AST ALT Alkaline Phosphatase Total Creatine Kinase CK-MB (CK-2) Troponin I 0.073 H D B-Natriuretic Peptide 343 H Total Protein Albumin Globulin Albumin/Globulin Ratio 03/17/17 15:34 WBC RBC Hgb Hct MCV MCH MCHC RDW Plt Count MPV Neut % (Auto) Lymph % (Auto) [place] % (Auto) Eos % (Auto) Baso % (Auto) Neut # (Auto) Lymph # (Auto) [place] # (Auto) Eos # (Auto) Baso # (Auto) Total Counted Immature Gran % Nucleated RBC % Immature Gran # Segmented Neutrophils Lymphocytes Monocytes Eosinophils Nucleated RBCs # Platelet Estimate Immature Plt Fraction Sodium 137 Potassium 3.9 Chloride 103 Carbon Dioxide 27 Anion Gap 10.9 BUN 21 H Creatinine 1.20 H GFR Calculation 41 BUN/Creatinine Ratio 17.00 Glucose 104 Calculated Osmolality 275.8 Calcium 9.6 Total Bilirubin 1.70 H AST 29 ALT 28 Alkaline Phosphatase 124 H Total Creatine Kinase 152 D CK-MB (CK-2) < 1.0 Troponin I 0.042 B-Natriuretic Peptide Total Protein 7.1 Albumin 3.3 L Globulin 3.8 H Albumin/Globulin Ratio 0.8 L - Imaging and Cardiology Procedure: Chest x-ray: report reviewed by me DS: Provider Date of admission: 03/17/17 17:40 Primary care physician: . No PCP Attending physician on admission: Audrey Cerna Consults: 03/17/17 16:23 Consult to Cardiac Rehabilitation [CONS] Routine Reason for Cardiac Rehabilitation: Risk Factor Modification Discharging clinician: Yanely Zaldivar NP Expected date of discharge: 03/18/17 <Johnson Greenfield - Last Filed: 03/18/17 12:39> Diagnosis - Discharge Diagnosis (1) Neck pain Status: Acute (2) Abnormal ECG Status: Chronic (3) History of hypertension Status: Chronic (4) History of OCD (obsessive compulsive disorder) Status: Chronic (5) Dyslipidemia Status: Chronic (6) Ischemic cardiomyopathy Status: Chronic
[2017-03-18 12:07] VITALS: BP 114/66
== END 2017-03-18 12:50 | disposition home or self-care (01) ==
LOC: N.ED 14:49 → N.EDINP 14:49 → N.TELES 15:55
PROVIDERS: ADMIT Internal Medicine Cardiovascular Disease; ATTEND Internal Medicine Cardiovascular Disease

== ENCOUNTER 2017-03-18 23:14 | Inpatient (IN) ==
[2017-03-19] MEDS ORDERED: SODIUM CHLORIDE 0.9% 500 ML IV STA
--- NOTE | 2017-03-19 00:01 | Emergency Department Note ---
Hattie Roy Mantricia, am scribing for, and in the presence of, Wilson Long MD 23:48. Ethan Roy Charles R, MD, personally performed the services described in this documentation, ascribed by Jefferson Kuhn in my presence, and it is both accurate and complete . Arrival - Arrival Chief Complaint: Chest Pain Stated Complaint: Weakness, dizziness, nausea and vomiting ED Nursing Triage Note: Pt stated she had weakness and chest pain tonight while at home. Pt had a myocardial infartion one week ago with one stent placed. Pt also had a heart cath last night for chest pain, but no interventions were needed. Pt has had n/v tonight. 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 Pt had a syncopal episode tonight where she became extremely dizzy and began to vomit. She has a Hx of [place] on 03/11/17 and a stent was placed that night by Dr. Contreras; pt's LAD was 100% blocked. Pt's first cath was performed by Dr. Dorantes. She was seen at ED last night by Dr. Hammer for chest pain and was sent to the radiographer cardiac catheterization. Dr. Greenfield performed an emergent cath last night and reports that everything was normal with no blockages. Daughter reports that after the syncopal episode, she checked pt's blood pressure at home and it was 105/70. Dr. Greenfield was alerted at 2330 and he stated that pt was catheterized yesterday and everyday was normal. Pt's issue tonight should not be cardiac related per Dr. Greenfield. Pt has a Hx of vertigo, which is now being evaluated. No other complaints were reported to ED. Onset (ago): hour(s) Consistency: constant Severity: moderate Allergies/Adverse Reactions: Allergies Allergy/AdvReac Type Severity Reaction Status Date / Time clonazepam [From Klonopin] AdvReac Confusion Verified 03/11/17 09:36 prochlorperazine AdvReac Confusion Verified 03/11/17 09:36 [From Compazine] quetiapine [From Seroquel] AdvReac Confusion Verified 03/11/17 09:36 risperidone [From Risperdal] AdvReac Nausea Verified 03/17/17 15:01 Home Medications: Home Medications Medication Instructions Recorded Confirmed Type PARoxetine [Paxil] 40 mg PO DAILY 03/11/17 03/19/17 History Rivastigmine 9.5 mg/24Hr Patch 9.5 mg TRANSDERM DAILY 03/11/17 03/19/17 History [Exelon 9.5 mg/24 hr Patch] Aspirin EC Tab 81 mg PO DAILY #30 tablet 03/13/17 03/19/17 Rx Atorvastatin [Lipitor] 80 mg PO BEDTIME #30 tablet 03/13/17 03/19/17 Rx Carvedilol [Coreg] 6.25 mg PO BID #60 tablet 03/13/17 03/19/17 Rx Furosemide Tab [Lasix Tab] 40 mg PO DAILY #30 tablet 03/13/17 03/19/17 Rx Lisinopril [Prinivil] 5 mg PO DAILY #60 tablet 03/13/17 03/19/17 Rx Ticagrelor [Brilinta] 90 mg PO BID #60 tablet 03/13/17 03/19/17 Rx Potassium Chloride Cap/Tab [K Dur] 10 meq PO BID 03/17/17 03/19/17 History Pantoprazole Tab [Protonix Tab] 40 mg PO DAILY #30 tablet 03/18/17 03/19/17 Rx Review of System - Review of System 12 point system: reviewed and no additional remarkable complaints except as stated - Review of System Constitutional: Absent: chills, diaphoresis, fever Respiratory: Absent: cough Cardiovascular: Present: chest pain Gastrointestinal: Present: nausea, vomiting. Absent: abdominal pain, diarrhea Neurological: Present: weakness, vertigo. Absent: headache Medical,Surgical,& Family Hx - Medical History Cardio: History of: CAD, Hypertension, [place] (stent x1) Psychological: History of: Anxiety Disorders, Depression, Psychiatric Problems ( OCD) Neurology: History of: Dementia HEENT: History of: Eye Problem (CATERAC SX BOTH EYES) Renal: History of: Renal Problems (NOT ALLOW TO TAKE IBUPROFEN D/T PAST BUMPED LABS FROM [facility]) Genitourinary: History of: Recurring Urinary Tract Infections Other: History of: Miscellaneous Medical Problems (SEPTIC FROM UTI) - Surgical History Cardiac Surgeries: Sugical HX of: Cardiac Catheterization Abdominal Surgeries: Surgical HX of: Appendectomy Orthopedic Surgeries: Surgical HX of;: Total Knee Replacement (LEFT) - Family History Family History: Reports;: Family Anesthesia Reaction (PT SEVERLY CONFUSED AFTER. ) - Social History Smoking Status: Unknown if ever smoked Frequency of Alcohol Use: None Type of Drug Use: None Exam Vital Signs: Vital Signs Temperature 97.4 F L 03/18/17 23:23 Pulse Rate 72 03/19/17 01:16 Respiratory Rate 18 03/18/17 23:23 Blood Pressure 117/61 03/19/17 01:16 O2 Sat by Pulse Oximetry 98 03/19/17 01:07 - General General appearance: alert, in no apparent distress - Head Head exam: Present: atraumatic, normocephalic - Eye Eye exam: Present: normal appearance, PERRL, EOMI - ENT ENT exam: Present: normal exam, normal oropharynx, mucous membranes moist - Neck Neck exam: Present: normal inspection - Chest Chest inspection: Present: normal inspection - Respiratory Respiratory exam: Present: normal lung sounds bilaterally - Cardiovascular Cardiovascular exam: Present: regular rate, normal rhythm, normal heart sounds - Abdominal Exam Abdominal exam: Present: soft. Absent: distention, tenderness, guarding, rebound - Extremities Exam Extremities exam: Present: other (+1 LE edema bilat) - Back Exam Back exam: Present: normal inspection - Neurological Exam Neurological exam: Present: alert, oriented X3 - Psychiatric Psychiatric exam: Present: normal affect, normal mood - Skin Skin exam: Present: warm, dry, intact, normal color Course - Consultations Consultation #1: Dr. Greenfield called EKG showing him multiple EKGs were reviewed he did a heart cath this patient last night said that the patient does not need to come into cardiac service heart cath is clean there is no reason to go to the Senior Hr Manager again. This is not a cardiac problem cord Dr. Greenfield to workup medically Time: 23:35 Consultation #2: Hospitalist will admit patient Time: 01:56 Results - Labs CBC & BMP: 03/19/17 00:00 03/19/17 00:12 - Diagnostic Findings Procedure: CT: image reviewed by me, report reviewed by me (Possible edema in the left cerebellum and juan) Disposition Clinical Impression: Atypical chest pain, Syncope and collapse, Edema in the juan and left cerebellum Case discussed with: patient, patient's family Disposition: Still a Patient Condition: Stable Time of Disposition: 01:57
[2017-03-19 00:24] LABS: Basophils % 0.3 % (0.0-0.8); Eosinophils # 0.3 10*3/uL (0.0-0.87); Eosinophils % 3.1 % (0.00-10.9); Hematocrit 32.1 VOL% (35.7-47.0); Hemoglobin 10.4 GM/DL (12.0-16.0); Immature Granulocytes % 0.7 %; Immature Granulocytes Absolute 0.07 #; Lymphocytes # 1.5 10*3/uL (1.4-4.0); Lymphocytes % 14.3 % (21.3-54.2); Mean Corpuscular HGB Conc 32.4 GM/DL (32-36); Mean Corpuscular Hemoglobin 29 PG (27-34); Mean Corpuscular Volume 88.7 FL (87-102); Mean Platelet Volume 11.1 FL (9.6-12.0); Monocytes # 0.8 10*3/uL (0.11-0.8); Monocytes % 7.4 % (1.7-12.7); Neutrophils # 7.8 10*3/uL (1.4-7.4); Neutrophils % 74.2 % (38.7-73.9); Platelet Count 308 T/CUMM (130-400); Red Blood Count 3.62 MC/CUMM (3.8-5.5); Red Cell Distribution Width 14.6 % (9.3-17.3); White Blood Count 10.5 T/CUMM (4-12)
[2017-03-19 00:37] LABS: PT Patient Result 10.7 SECS
[2017-03-19 00:48] LABS: Alanine Aminotransferase 21 U/L (13-56); Albumin 2.8 G/DL (3.4-5.0); Alkaline Phosphatase 97 U/L (45-117); Aspartate Amino Transferase 18 U/L (0-37); Blood Urea Nitrogen 19 MG/DL (7-18); Calcium 9.1 MG/DL (8.5-10.1); Glucose 114 MG/DL (74-106); Magnesium 1.7 MG/DL (1.8-2.4); Osmolality,Calculated 277.7 MOS/KG (273-304); Potassium 3.5 MMOL/L (3.5-5.1); Sodium 138 MMOL/L (136-145)
[2017-03-19 01:52] LABS: Apearance,Urine CLEAR (Clear); Bacteria,Urine Occasional /HPF (Few); Bilirubin,Urine Negative (Negative); Blood, Urine Negative (Negative); Glucose,Urine (UA) Negative (Negative); Hyaline Casts,Urine 4 /LPF (0-3); Ketones,Urine Negative (Negative); Mucus,Urine Occasional /LPF (Occasional); Nitrite,Urine Negative (Negative); Protein,Urine Negative; RBC,Urine 2 /HPF (0-4); Squamous Epithelial Cell,Urine Occasional /HPF (0-10); Urine Color Yellow (Yellow); Urine Specific Gravity 1.012 (1.001-1.035); Urine Urobilinogen < 2.0 EU/DL (0.2-1.0); WBC,Urine 2 /HPF (0-6)
[2017-03-19] MEDS ORDERED: ZALEPLON 5 MG CAPSULE PO PRN (02:44)
[2017-03-19] MEDS ORDERED: ACETAMINOPHEN 325 MG TABLET PO PRN (02:44)
--- NOTE | 2017-03-19 02:52 | Hospitalist History & Physical ---
Assessment and Plan - Time spent with patient Time spent with patient: Greater than 30 minutes (1) Syncope and collapse Status: Acute Assessment and plan: Admit to the hospital service for further workup. Consult neurology. MRI brain. Ultrasound carotid arteries. Current Visit: Yes (2) Atypical chest pain Status: Acute Current Visit: Yes (3) Chest pain Status: Acute Current Visit: No (4) Dyslipidemia Status: Chronic Current Visit: Yes (5) History of hypertension Status: Chronic Current Visit: No (6) Chest pain Status: Chronic Current Visit: Yes History of Present Illness Chief complaint: Syncope History of present illness: Ms. Shelton is a 76 year old female presents to the emergency department accompanied by her daughter after syncopal episode at home. 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 Pt had a syncopal episode tonight where she became extremely dizzy and began to vomit. She has a Hx of [place] on 03/11/17 and a stent was placed that night by Dr. Contreras; pt's LAD was 100% blocked. Pt's first cath was performed by Dr. Dorantes. She was seen at ED last night by Dr. 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 Dr. Greenfield performed an emergent cath last night and reports that everything was normal with no blockages. Daughter reports that after the syncopal episode, she checked pt's blood pressure at home and it was 105/70. Dr. Greenfield was alerted at 2330 and he stated that pt was catheterized yesterday and everyday was normal. Pt's issue tonight should not be cardiac related per Dr. Greenfield. Pt has a Hx of vertigo, which is now being evaluated. No other complaints were reported to ED. Echocardiogram done 03/11/2017 reveals: Moderately to severely reduced LV systolic function with regional wall motion as described below, ejection fraction 35%. Grade 1/4 diastolic dysfunction. Mild left atrial enlargement. Mild mitral, tricuspid regurgitation. Trace aortic and pulmonic regurgitation. Aortic sclerosis without stenosis. Trivial pericardial effusion. The patient was pleasant and cooperative at the time of my evaluation in room 20 in the emergency department. Her daughter is at the bedside. She reports domonique syncope earlier today. No loss of bowel or bladder function. The patient is alert awake and oriented and cooperative. She has no acute neurologic deficit at this time. Her workup in the emergency department included a CT of the head which was found to be abnormal with areas of edema in the posterior circulation areas of the cerebellum and juan. She is being admitted for further evaluation and treatment by neurology and MRI. Home Medications Medication Instructions Recorded Confirmed Type PARoxetine [Paxil] 40 mg PO DAILY 03/11/17 03/19/17 History Rivastigmine 9.5 mg/24Hr Patch 9.5 mg TRANSDERM DAILY 03/11/17 03/19/17 History [Exelon 9.5 mg/24 hr Patch] Aspirin EC Tab 81 mg PO DAILY #30 tablet 03/13/17 03/19/17 Rx Atorvastatin [Lipitor] 80 mg PO BEDTIME #30 tablet 03/13/17 03/19/17 Rx Carvedilol [Coreg] 6.25 mg PO BID #60 tablet 03/13/17 03/19/17 Rx Furosemide Tab [Lasix Tab] 40 mg PO DAILY #30 tablet 03/13/17 03/19/17 Rx Lisinopril [Prinivil] 5 mg PO DAILY #60 tablet 03/13/17 03/19/17 Rx Ticagrelor [Brilinta] 90 mg PO BID #60 tablet 03/13/17 03/19/17 Rx Potassium Chloride Cap/Tab [K Dur] 10 meq PO BID 03/17/17 03/19/17 History Pantoprazole Tab [Protonix Tab] 40 mg PO DAILY #30 tablet 03/18/17 03/19/17 Rx Allergies Allergy/AdvReac Type Severity Reaction Status Date / Time clonazepam [From Klonopin] AdvReac Confusion Verified 03/11/17 09:36 prochlorperazine AdvReac Confusion Verified 03/11/17 09:36 [From Compazine] quetiapine [From Seroquel] AdvReac Confusion Verified 03/11/17 09:36 risperidone [From Risperdal] AdvReac Nausea Verified 03/17/17 15:01 Medical,Surgical,& Family Hx - Medical History Cardio: History of: CAD, Hypertension, [place] (stent x1) Psychological: History of: Anxiety Disorders, Depression, Psychiatric Problems ( OCD) Neurology: History of: Dementia HEENT: History of: Eye Problem (CATERAC SX BOTH EYES) Renal: History of: Renal Problems (NOT ALLOW TO TAKE IBUPROFEN D/T PAST BUMPED LABS FROM [facility]) Genitourinary: History of: Recurring Urinary Tract Infections Other: History of: Miscellaneous Medical Problems (SEPTIC FROM UTI) - Surgical History Cardiac Surgeries: Sugical HX of: Cardiac Catheterization Abdominal Surgeries: Surgical HX of: Appendectomy Orthopedic Surgeries: Surgical HX of;: Total Knee Replacement (LEFT) - Family History Family History: Reports;: Family Anesthesia Reaction (PT SEVERLY CONFUSED AFTER. ) - Social History Smoking Status: Unknown if ever smoked Have you smoked in the last 12 months: Yes Frequency of Alcohol Use: None Type of Drug Use: None Marital Status: Lives With:: Children 12 point system: reviewed and no additional remarkable complaints except as stated Exam - Constitutional Vitals: Period Temp Pulse Resp BP Sys/Seth Pulse Ox Last 24 Hr 97.4 F-97.6 F 72-75 18-18 106-117/48-61 98-98 Exam: Constitutional System: No distress. No tremulousness. Head: Normocephalic, atraumatic. Ears, Nose and Throat System: No pain or tenderness. No epistaxis or discharge Eyes System: Pupils equal, round, and reactive. Extraocular muscles intact. Neck: Supple, without adenopathy, No jugular venous distention. No thyromegaly, neck mass, or prior surgery apparent. Respiratory System: Chest clear to auscultation. Cardiovascular System: Heart with regular rate and rhythm. No murmur. GI System: Abdomen soft, nontender. Normo active bowel sounds present. Musculoskeletal System: limbs with no pedal edema. Full distal pulses. Neurological System: No discernable sensory deficit. No aphasia Psychiatric System: Conversation is rational Results - Labs CBC & BMP: 03/19/17 00:00 03/19/17 00:12 Lab Results: I have reviewed the past 24 hour labs - Diagnostic Findings Procedure: CT: report reviewed by me, image reviewed by me
[2017-03-19] MEDS: SODIUM CHLORIDE 0.9% 1,000 ML IV SCH ×2 (04:33→21:05)
[2017-03-19 06:38] LABS: Basophils % 0.4 % (0.0-0.8); Eosinophils # 0.2 10*3/uL (0.0-0.87); Eosinophils % 2.3 % (0.00-10.9); Hematocrit 30.7 VOL% (35.7-47.0); Hemoglobin 9.8 GM/DL (12.0-16.0); Immature Granulocytes % 0.5 %; Immature Granulocytes Absolute 0.04 #; Lymphocytes # 1.7 10*3/uL (1.4-4.0); Lymphocytes % 21.6 % (21.3-54.2); Mean Corpuscular HGB Conc 31.9 GM/DL (32-36); Mean Corpuscular Hemoglobin 28 PG (27-34); Mean Corpuscular Volume 88.7 FL (87-102); Mean Platelet Volume 11.5 FL (9.6-12.0); Monocytes # 0.6 10*3/uL (0.11-0.8); Monocytes % 7.9 % (1.7-12.7); Neutrophils # 5.2 10*3/uL (1.4-7.4); Neutrophils % 67.3 % (38.7-73.9); Platelet Count 314 T/CUMM (130-400); Red Blood Count 3.46 MC/CUMM (3.8-5.5); Red Cell Distribution Width 14.7 % (9.3-17.3); White Blood Count 7.7 T/CUMM (4-12)
[2017-03-19 07:08] LABS: Calcium 9.2 MG/DL (8.5-10.1); Magnesium 1.8 MG/DL (1.8-2.4); Osmolality,Calculated 279.4 MOS/KG (273-304); Potassium 3.7 MMOL/L (3.5-5.1); Risk Ratio 4.85
--- NOTE | 2017-03-19 07:09 | XRay Report ---
XR chest 1V portable Indication: Shortness of breath Comparison: 17 March 2017 Findings: The heart and mediastinum are normal in size and configuration. The pulmonary vascularity is normal in caliber. No lung infiltrates, effusions, pneumothorax or other abnormality is demonstrated. Impression: Normal chest x-ray PROCEDURE INTERPRETED AT [facility] DEPARTMENT OF RADIOLOGY Final Report Signed by: Dr. Jeffery Pina
--- NOTE | 2017-03-19 07:13 | CT Report ---
CT brain Indication: Syncope Comparison: 27 February 2012 Technique: Axial CT imaging of the brain is performed without contrast with 3 mm increments. Findings: No evidence of hemorrhage, mass mass effect midline shift or acute infarct seen. There is moderate diffuse cerebral atrophy. There are areas of decreased density seen within the white matter similar to previous exam. Otherwise the brain parenchyma attenuation and differentiation appears within normal limits. The ventricles and cisterns are normal in caliber. No cranial or skull base abnormality is identified. Impression: No evidence of acute process or interval change. This CT exam was performed using one or more the following dose reduction techniques: Automated exposure control, adjustment of the MA and/or KV according to patient size, or use of iterative reconstruction technique. PROCEDURE INTERPRETED AT [facility] [place] DEPARTMENT OF RADIOLOGY Final Report Signed by: Dr. Jeffery Pina
--- NOTE | 2017-03-19 07:47 | EKG Report ---
Stationary ECG Study [facility] ER Test Date: 03/18/2017 11:19:46 PM Pat Name: AC HAILE Department: Room: 109 Gender: F [employer] Docent: : 1940 Requested by: Wilson Patel Order Number: [id number] Reading MD: BRADLEY CHANCE Intervals [place] Rate: 78 P: 59 ME: 155 QRS: -66 QRSD: 106 T: 102 QT: 427 QTc: 461 Interpretive Statements SINUS RHYTHM WITH OCCASIONAL VENTRICULAR PREMATURE COMPLEXES at 70 bpm LEFT ANTERIOR FASCICULAR BLOCK ANTEROSEPTAL MYOCARDIAL INFARCTION, PROBABLY RECENT Electronically Signed On 03-19-17 07:57:55 CDT by BRADLEY CHANCE [email or web address]
--- NOTE | 2017-03-19 07:51 | Ultrasound Report ---
Carotid artery ultrasound Indication: Stroke Comparison: None available Color Doppler flow and spectral analysis was performed. Findings: Incidental finding of partial filling defect present in the left internal jugular vein at the bifurcation level Small amount of atherosclerotic plaque is present in both proximal internal carotid arteries. Right peak systolic velocity: Right CCA: 83 cm/s Right proximal Internal Carotid Artery is 48.1 cm/s. Ratio of flow is 0.8 Right distal Internal Carotid is 67.7 cm/s . Left peak systolic velocity: Left CCA: 75 cm/s Left proximal Internal carotid Artery is 59.8 cm/s . Ratio of flow is 1.2 Left distal Internal carotid Artery is 88.5cm/s Bilateral antegrade vertebral flow is seen. Impression: No evidence of hemodynamically significant stenosis is seen, 0-49% estimated stenosis. Partial filling defect of the internal jugular vein, could indicate thrombus. Consensus conference on the carotid ultrasound criteria used. Ultrasound images were captured and stored. PROCEDURE INTERPRETED AT [facility] DEPARTMENT OF RADIOLOGY Final Report Signed by: Dr. Jeffery Pina
--- NOTE | 2017-03-19 08:11 | Hospitalist Progress Note ---
Assessment and Plan (1) Syncope and collapse Status: Acute Assessment and plan: She has experienced no recurrent such episodes since her hospitalization. A CT scan of the brain demonstrated no acute abnormalities. She neurologically appears intact at the present time. Neurology has been consulted. Current Visit: Yes Hospitalist: Subjective Interval history: Patient was admitted to the hospital last night with syncope. She has recently undergone cardiac catheterization reportedly demonstrating normal coronary arteries and normal left ventricle. She is also reportedly undergoing evaluation for vertigo. A CT of the brain scan performed at the time of admission yesterday showed no acute abnormalities. A neurology consultation is pending. Exam - Constitutional Vitals: Period Temp Pulse Resp BP Sys/Seth Pulse Ox Last 24 Hr 97.4 F-97.6 F 66-75 16-18 106-122/48-61 96-98 General appearance: normal weight, no acute distress - Head Head exam: Present: normal inspection - Neck Neck exam: Present: normal inspection - Respiratory Respiratory exam: Present: clear to auscultation bilaterally - Cardiovascular Cardiovascular exam: Present: regular rate and rhythm - GI/Abdominal GI/Abdominal exam: Present: normal bowel sounds, soft, other (Nontender with no palpable masses or hepatosplenomegaly.) - Extremities Exam Extremities exam: Present: normal inspection - Back Exam Back exam: Present: normal inspection - Neurological Exam Neurological exam: Present: alert, oriented X3 - Psychiatric Psychiatric exam: Present: normal affect - Skin Skin exam: Present: normal color, warm, intact Results - Labs CBC & BMP: 03/19/17 05:36 03/19/17 05:36
--- NOTE | 2017-03-19 11:05 | Magnetic Resonance Report ---
MR head/brain w and wo con, MR angio head wo con (COW) Indication: Syncope, abnormal CT Comparison: CT brain dated March 19, 2017 Technique: Multiplanar magnetic resonance imaging was performed of the brain before and after the administration of 13 cc Dotarem intravenous contrast. MRA of the brain was performed without the use of intravenous contrast and 3-D reformats provided. Findings: Moderate global volume loss present. The cardiomediastinal silhouette is stable in configuration. Marked periventricular and subcortical T2 hyperintensity is noted which is nonspecific. Considerations include chronic microvascular ischemic change, demyelinating process, and vasculitis. No abnormal intracranial postcontrast enhancement. The midline structures are nondisplaced. There is no convincing evidence of hydrocephalus. The mcdonald-white matter differentiation is maintained. There is no convincing evidence of acute intracranial hemorrhage or ischemia. The included orbits and their contents appear within normal limits. MRA images demonstrate no significant vessel cut off within the intracranial or extracranial arterial circulation. There is no convincing evidence of significant aneurysm formation. IMPRESSION: No acute intracranial abnormality demonstrated. Marked periventricular and subcortical T2 hyperintensity is noted which is nonspecific. Considerations include chronic microvascular ischemic change, demyelinating process, and vasculitis. Moderate global volume loss present. Unremarkable MRA brain. PROCEDURE INTERPRETED AT [facility] DEPARTMENT OF RADIOLOGY Final Report Signed by: Dr Jeremy Carvalho
[2017-03-19] MEDS: ENOXAPARIN 40 MG/0.4 ML SYRINGE SUBCUT SCH (11:07)
[2017-03-19] MEDS: CARVEDILOL 6.25 MG TABLET PO SCH ×2 (11:07→21:05)
[2017-03-19] MEDS: ASPIRIN EC 81 MG TABLET PO SCH (11:07)
[2017-03-19] MEDS: POTASSIUM CHLORIDE 10 MEQ TABLET PO SCH ×2 (11:07→21:05)
[2017-03-19] MEDS: TICAGRELOR 90 MG TABLET PO SCH ×2 (11:07→21:05)
[2017-03-19] MEDS: PARoxetine 20 MG TABLET PO SCH (11:08)
[2017-03-19] MEDS: PANTOPRAZOLE 40 MG TABLET PO SCH ×2 (11:08→11:17)
[2017-03-19] MEDS: LISINOPRIL 2.5 MG TABLET PO SCH (11:08)
[2017-03-19] MEDS: RIVASTIGMINE 9.5 MG/24 HR PATCH TRANSDERM SCH (11:09)
--- NOTE | 2017-03-19 15:53 | Neurology Consult Note ---
History of Present Illness History of present illness: Patient is unable to provide me much history. History basically obtained from patient's daughter. Ms. Shelton is a 76 year old female presents to the emergency department accompanied after syncopal episode at home. 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 Pt had a syncopal episode yesterday where she became extremely dizzy and began to vomit. She has a Hx of [place] on 03/11/17 and a stent was placed that night. She was seen at ED last night by Dr. Hammer for chest pain and was sent to the landscaping and groundskeeping laborer. Which revealed no significant pathology. Daughter reports that after the syncopal episode, she checked pt's blood pressure at home and it was 105/70. Echocardiogram done 03/11/2017 reveals: Moderately to severely reduced LV systolic function with regional wall motion as described below, ejection fraction 35%. MRI of the brain reveals no acute abnormalities. Home Medications Medication Instructions Recorded Confirmed Type PARoxetine [Paxil] 40 mg PO DAILY 03/11/17 03/19/17 History Rivastigmine 9.5 mg/24Hr Patch 9.5 mg TRANSDERM DAILY 03/11/17 03/19/17 History [Exelon 9.5 mg/24 hr Patch] Aspirin EC Tab 81 mg PO DAILY #30 tablet 03/13/17 03/19/17 Rx Atorvastatin [Lipitor] 80 mg PO BEDTIME #30 tablet 03/13/17 03/19/17 Rx Carvedilol [Coreg] 6.25 mg PO BID #60 tablet 03/13/17 03/19/17 Rx Furosemide Tab [Lasix Tab] 40 mg PO DAILY #30 tablet 03/13/17 03/19/17 Rx Lisinopril [Prinivil] 5 mg PO DAILY #60 tablet 03/13/17 03/19/17 Rx Ticagrelor [Brilinta] 90 mg PO BID #60 tablet 03/13/17 03/19/17 Rx Potassium Chloride Cap/Tab [K Dur] 10 meq PO BID 03/17/17 03/19/17 History Pantoprazole Tab [Protonix Tab] 40 mg PO DAILY #30 tablet 03/18/17 03/19/17 Rx Allergies Allergy/AdvReac Type Severity Reaction Status Date / Time clonazepam [From Klonopin] AdvReac Confusion Verified 03/11/17 09:36 prochlorperazine AdvReac Confusion Verified 03/11/17 09:36 [From Compazine] quetiapine [From Seroquel] AdvReac Confusion Verified 03/11/17 09:36 risperidone [From Risperdal] AdvReac Nausea Verified 03/17/17 15:01 12 point system: reviewed and no additional remarkable complaints except as stated Medical,Surgical,& Family Hx - Medical History Cardio: History of: CAD, Hypertension, [place] (stent x1) Psychological: History of: Anxiety Disorders, Depression, Psychiatric Problems ( OCD) Neurology: History of: Dementia HEENT: History of: Eye Problem (CATERAC SX BOTH EYES) Renal: History of: Renal Problems (NOT ALLOW TO TAKE IBUPROFEN D/T PAST BUMPED LABS FROM RISPERDAL) Genitourinary: History of: Recurring Urinary Tract Infections Other: History of: Miscellaneous Medical Problems (SEPTIC FROM UTI) - Surgical History Cardiac Surgeries: Sugical HX of: Cardiac Catheterization Abdominal Surgeries: Surgical HX of: Appendectomy Orthopedic Surgeries: Surgical HX of;: Total Knee Replacement (LEFT) - Family History Family History: Reports;: Family Anesthesia Reaction (PT SEVERLY CONFUSED AFTER. ) - Social History Smoking Status: Unknown if ever smoked Frequency of Alcohol Use: None Type of Drug Use: None Exam - Constitutional Vitals: Period Temp Pulse Resp BP Sys/Esth Pulse Ox Last 24 Hr 97.4 F-97.6 F 62-75 16-18 106-122/47-61 96-100 Exam: GENERAL: Patient is in no acute distress. NECK: Neck is supple. There is no JVD. No carotid bruits present. No thyroid masses. CVS: First and second heart sounds are normal. There is no S3 present. Regular rate and rhythm. RESPIRATORY: Lungs are clear to auscultation without any rales or rhonchi. ABDOMEN: Soft and non-tender. Bowel sounds are present. There is no hepatosplenomegaly. EXT: There is no palpable edema. Peripheral pulses are present. Skin: No rashes Central Nervous system: General: Alert, awake Speech: Fluent Comprehension: Intact and normal Facial expressions: Normal Cranial Nerves: CN1/Olfactory: Normal CN II/ Optic: Normal, Visual Dhillon unreliable CN III, and : BORIS & EOMI CN V: Normal & intact CN VII: face is symmetric CNVIII: Normal CN XI/X/XI/XII: Intact and Normal Motor: Bulk and Tone is normal. Strength in the right 5/5 Strength in the left 5/5 Sensory: Grossly intact for all the modalities of PP, LT and temp sense Reflexes: 1+ and symmetrical Cerebellar function: Normal finger to nose and heel to paul testing. Toes: Equivocal Gait: Not tested at this Results - Labs CBC & BMP: 03/19/17 05:36 03/19/17 05:36 Assessment and Plan (1) Syncope and collapse Status: Acute Assessment and plan: Differential diagnosis would include vasovagal phenomena, cardiac arrhythmias or medication side effect. Seizures and TIA would be less likely but cannot be excluded entirely. No evidence of a stroke on MRI. Continue aspirin and Brilinta Order EEG Current Visit: Yes (2) Alzheimers disease Status: Acute Assessment and plan: Patient sees Dr. Anderson's nurse practitioner at [facility]. Thank you for the consult Current Visit: Yes
[2017-03-19] MEDS: ATORVASTATIN 80 MG TABLET PO SCH (21:07)
[2017-03-20] MEDS: SODIUM CHLORIDE 0.9% 1,000 ML IV SCH ×4 (01:21→17:33)
[2017-03-20] MEDS: ASPIRIN EC 81 MG TABLET PO SCH (08:59)
[2017-03-20] MEDS: ENOXAPARIN 40 MG/0.4 ML SYRINGE SUBCUT SCH (08:59)
[2017-03-20] MEDS: LISINOPRIL 2.5 MG TABLET PO SCH (09:00)
[2017-03-20] MEDS: PANTOPRAZOLE 40 MG TABLET PO SCH ×2 (09:01→09:02)
[2017-03-20] MEDS: POTASSIUM CHLORIDE 10 MEQ TABLET PO SCH ×2 (09:01→21:18)
[2017-03-20] MEDS: PARoxetine 20 MG TABLET PO SCH (09:01)
[2017-03-20] MEDS: CARVEDILOL 6.25 MG TABLET PO SCH ×2 (09:01→21:19)
[2017-03-20] MEDS: TICAGRELOR 90 MG TABLET PO SCH ×2 (09:01→21:18)
[2017-03-20] MEDS: RIVASTIGMINE 9.5 MG/24 HR PATCH TRANSDERM SCH (09:58)
--- NOTE | 2017-03-20 11:13 | Hospitalist Progress Note ---
Assessment and Plan (1) Syncope and collapse Status: Acute Assessment and plan: She has experienced no recurrent such episodes since her hospitalization. A CT scan of the brain demonstrated no acute abnormalities. She neurologically appears intact at the present time. Neurology is evaluating her. She is to undergo an EEG today. Current Visit: Yes Hospitalist: Subjective Interval history: Patient is a 76-year-old female admitted to the hospital yesterday with syncope. She is presently undergoing evaluation by neurology. Exam - Constitutional Vitals: Period Temp Pulse Resp BP Sys/Seth Pulse Ox Last 24 Hr 97.4 F-98.8 F 70-91 14-21 107-149/53-71 95-100 General appearance: no acute distress - Head Head exam: Present: normal inspection - Neck Neck exam: Present: normal inspection - Respiratory Respiratory exam: Present: clear to auscultation bilaterally - Cardiovascular Cardiovascular exam: Present: regular rate and rhythm - GI/Abdominal GI/Abdominal exam: Present: normal bowel sounds, soft, other (Nontender with no palpable masses or hepatosplenomegaly.) - Extremities Exam Extremities exam: Present: normal inspection - Neurological Exam Neurological exam: Present: alert, oriented X3 - Psychiatric Psychiatric exam: Present: normal affect - Skin Skin exam: Present: normal color, warm, intact Results - Labs CBC & BMP: 03/19/17 05:36 03/19/17 05:36
--- NOTE | 2017-03-20 15:35 | Neurology Progress Note ---
Neurology - PN : Subjective Interval history: Patient seems to be doing okay. No new problems reported. Feeling better. Slept well last night. EEG showed generalized slowing mild. Exam (Progress Note) - Constitutional Vitals: Period Temp Pulse Resp BP Sys/Seth Pulse Ox Last 24 Hr 97.4 F-98.8 F 70-84 14-21 107-157/53-76 87-100 Exam: GENERAL: Patient is in no acute distress. NECK: Neck is supple. There is no JVD. No carotid bruits present. No thyroid masses. CVS: First and second heart sounds are normal. There is no S3 present. Regular rate and rhythm. RESPIRATORY: Lungs are clear to auscultation without any rales or rhonchi. ABDOMEN: Soft and non-tender. Bowel sounds are present. There is no hepatosplenomegaly. EXT: There is no palpable edema. Peripheral pulses are present. Skin: No rashes Central Nervous system: General: Alert, awake Speech: Fluent Comprehension: Intact and normal Facial expressions: Normal Cranial Nerves: CN1/Olfactory: Normal CN II/ Optic: Normal, Visual Dhillon unreliable CN III, and : BORIS & EOMI CN V: Normal & intact CN VII: face is symmetric CNVIII: Normal CN XI/X/XI/XII: Intact and Normal Motor: Bulk and Tone is normal. Strength in the right 5/5 Strength in the left 5/5 Sensory: Grossly intact for all the modalities of PP, LT and temp sense Reflexes: 1+ and symmetrical Cerebellar function: Normal finger to nose and heel to paul testing. Toes: Equivocal Gait: Able to get up and take a few steps Results - Labs CBC & BMP: 03/19/17 05:36 03/19/17 05:36 Assessment and Plan (1) Syncope and collapse Status: Acute Assessment and plan: Differential diagnosis would include vasovagal phenomena, cardiac arrhythmias or medication side effect. No evidence of a stroke on MRI. Continue aspirin and Brilinta Current Visit: Yes (2) Alzheimers disease Status: Acute Assessment and plan: Patient sees Dr. Anderson's nurse practitioner at [facility]. Defer further treatment to them Sign off please call as needed Current Visit: Yes
--- NOTE | 2017-03-20 20:05 | Electroencephalogram ---
DATE OF STUDY: 03/20/2017 HISTORY: A 76-year-old female with a history of syncope. MEDICATIONS: Not available. INTRODUCTION: A digital EEG was performed using the standard 10/20 system of electrode placement wit h one channel of EKG monitoring. Photic stimulation is performed. DESCRIPTION OF RECORD: The background is somewhat disorganized, consists of 8 to 8.5 Hz moderate amp litude bilaterally symmetrical alpha rhythm predominantly in the posterior head region that attenuate s with eye opening. Photic stimulation elicits driving response at slower flash frequencies. Hyperve ntilation was not performed. Drowsiness is characterized by 5 to 7 delta-theta activity. There are no focal, sharp wave, spike, or wave activity seen. Heart rate 50 beats per minute. IMPRESSION: NORMAL EEG DURING WAKEFULNESS AND SLEEPINESS. CLINICAL CORRELATION: No focal nor epileptiform features are seen. Normal EEG does not rule out the diagnostic possibility of epilepsy. Clinical correlation is suggested.
[2017-03-20] MEDS: ATORVASTATIN 80 MG TABLET PO SCH (21:18)
[2017-03-21] MEDS: SODIUM CHLORIDE 0.9% 1,000 ML IV SCH ×2 (06:15→09:11)
[2017-03-21] MEDS: ENOXAPARIN 40 MG/0.4 ML SYRINGE SUBCUT SCH (09:09)
[2017-03-21] MEDS: RIVASTIGMINE 9.5 MG/24 HR PATCH TRANSDERM SCH (09:09)
[2017-03-21] MEDS: ASPIRIN EC 81 MG TABLET PO SCH (09:10)
[2017-03-21] MEDS: PARoxetine 20 MG TABLET PO SCH (09:10)
[2017-03-21] MEDS: TICAGRELOR 90 MG TABLET PO SCH (09:10)
[2017-03-21] MEDS: CARVEDILOL 6.25 MG TABLET PO SCH (09:10)
[2017-03-21] MEDS: PANTOPRAZOLE 40 MG TABLET PO SCH ×2 (09:10→09:11)
[2017-03-21] MEDS: LISINOPRIL 2.5 MG TABLET PO SCH (09:10)
[2017-03-21] MEDS: POTASSIUM CHLORIDE 10 MEQ TABLET PO SCH (09:10)
[2017-03-21 13:12] VITALS: BP 141/68
--- NOTE | 2017-03-21 13:51 | Discharge Summary ---
Hospital Course - Hospital Course Hospital Course: Ms. Shelton is a 76 year old female presents to the emergency department accompanied after syncopal episode at home. She c/o chest pain that onset an hour HEAD OF ICT. Pt had a syncopal episode yesterday where she became extremely dizzy and began to vomit. She has a Hx of [place] on 03/11/17 and a stent was placed that night. She was seen at ED last night by Dr. Hammer for chest pain and was sent to the medical laboratory technicians. Which revealed no significant pathology. Daughter reports that after the syncopal episode, she checked pt's blood pressure at home and it was 105/70. Echocardiogram done 03/11/2017 reveals: Moderately to severely reduced LV systolic function with regional wall motion as described below, ejection fraction 35%. MRI of the brain reveals no acute abnormalities. Patient was seen in consultation by Dr. Weaver of neurology. A CT scan of the head demonstrated no acute abnormalities and carotid duplex Doppler exam demonstrated no obstructions. She experienced no further episodes of loss of consciousness while in the hospital. It was Dr. Weaver's opinion that the episode of syncope was most probably vasovagal. At the time of her discharge she was stable with no complaints. Diagnosis - Discharge Diagnosis (1) Syncope and collapse Status: Acute Discharge Plan - Discharge Medications Continue Potassium Chloride Cap/Tab [K Dur] 10 meq PO BID Pantoprazole Tab [Protonix Tab] 40 mg PO DAILY #30 tablet No Action PARoxetine [Paxil] 40 mg PO DAILY Atorvastatin [Lipitor] 80 mg PO BEDTIME #30 tablet Carvedilol [Coreg] 6.25 mg PO BID #60 tablet Furosemide Tab [Lasix Tab] 40 mg PO DAILY #30 tablet Lisinopril [Prinivil] 5 mg PO DAILY #60 tablet Rivastigmine 9.5 mg/24Hr Patch [Exelon 9.5 mg/24 hr Patch] 9.5 mg TRANSDERM DAILY Aspirin EC Tab 81 mg PO DAILY #30 tablet Ticagrelor [Brilinta] 90 mg PO BID #60 tablet - Follow Up or Referral - Forms/Instructions Exam - Constitutional Vitals: Period Temp Pulse Resp BP Sys/Seth Pulse Ox Last 24 Hr 96.7 F-98.4 F 76-96 15-21 113-145/39-70 95-98 DS: Provider Date of admission: 03/19/17 02:44 Primary care physician: . No PCP Attending physician on admission: Raquel Manzanares MD Consults: 03/19/17 02:44 Consult to Physician [CONS] Routine Comment: syncope, abnormal CT Consulting Provider: Clayton Weaver Consulting Provider Notified: Yes Consult to Specialist Group: Neurology Person Notified: ZOE Date Notified: 03/19/17 Time Notified: 12:00 03/19/17 04:48 Consult to Pastoral Services [CONS] Routine Comment: Pastoral Screen: Request Anime Designer Visit Pastoral Screen Source of Request: Patient Discharging clinician: Nicola Christopher
== END 2017-03-21 15:13 | disposition home or self-care (01) | DRG 282 ==
LOC: N.ED 23:14 → SUATTDRO 03-19 02:41 → N.EDINP 03-19 02:41 → SUATTDRO 03-19 02:44 → N.ICU 03-19 03:42 → N.4E 03-19 22:24
PROVIDERS: ADMIT Family Medicine